=== PATIENT | female | born 1930 | race Caucasian/White ===

== ENCOUNTER 2017-06-12 21:08 | Inpatient (IN) | payer MEDICARE, OTHER ==
[~2017-06-12] VITALS: Ht 154.9 cm; Wt 54.5 kg
[2017-06-12] MEDS ORDERED: aspirin 81mg tab.chew PO ONE (21:20)
[2017-06-12] MEDS ORDERED: methylPREDNISolone sod succ 125mg/2ml vial IV ONE (21:30)
[2017-06-12] MEDS ORDERED: albuterol 2.5 MG/3 ML nebule CONTNEB PRN (21:30)
[2017-06-12 21:39] LABS: BASOPHILS # (AUTO) 0.1 X10'3 (0-0.2); BASOPHILS % (AUTO) 0.6 % (0-1); EOSINOPHILS # (AUTO) 0.6 X10'3 (0-0.9); EOSINOPHILS % (AUTO) 5.4 % (0-6); HEMATOCRIT 38.4 % (35.0-45.0); HEMOGLOBIN 12.7 g/dl (12.0-16.0); LYMPHOCYTES # (AUTO) 2.4 X10'3 (1.1-4.8); LYMPHOCYTES % (AUTO) 21.6 % (21-51); MEAN CORPUSCULAR HEMOGLOBIN 30.2 PG (27.0-31.0); MEAN CORPUSCULAR VOLUME 91.5 FL (78-98); MEAN PLATELET VOLUME 6.9 FL (7.4-10.4); MONOCYTES # (AUTO) 0.8 X10'3 (0-0.9); MONOCYTES % (AUTO) 7.2 % (2-12); NEUTROPHILS # (AUTO) 7.4 X10'3 (1.8-7.7); NEUTROPHILS % (AUTO) 65.2 % (42-75); PLATELET COUNT 264 X10'3 (140-440); RED CELL DISTRIBUTION WIDTH 15.8 % (11.5-14.5); WHITE BLOOD COUNT 11.4 X10'3 (4.5-11.0)
[2017-06-12 21:50] LABS: PARTIAL THROMBOPLASTIN TIME 28 SECONDS (22-32)
[2017-06-12 22:38] LABS: ALANINE AMINOTRANSFERASE 24 U/L (12-78); ALBUMIN 3.8 G/DL (3.4-5.0); ALBUMIN/GLOBULIN RATIO 1.1 (1.1-1.5); ALKALINE PHOSPHATASE 70 IU/L (46-116); ANION GAP 11 (8-16); ASPARTATE AMINO TRANSFERASE 22 U/L (10-37); BILIRUBIN,TOTAL 0.5 MG/DL (0.1-1.0); BLOOD UREA NITROGEN 20 MG/DL (7-18); BUN/CREATININE RATIO 20.8 (6.6-38.0); CALCIUM 9.3 MG/DL (8.5-10.1); CHLORIDE 104 MMOL/L (99-107); CREATININE 0.96 MG/DL (0.40-0.90); GLUCOSE 82 MG/DL (70-104); POTASSIUM 4.1 MMOL/L (3.5-5.1); SODIUM 145 MMOL/L (135-145); TOTAL PROTEIN 7.4 G/DL (6.4-8.2); eGFR 55 ML/MIN
[2017-06-12] MEDS ORDERED: levoFLOXACIN-Levaquin 500mg/D5 100 ML IV ONE (23:45)
[2017-06-12] MEDS ORDERED: GABA-532 PO (23:58)
[2017-06-12] MEDS ORDERED: ALB0.5UD IH (23:58)
[2017-06-12] MEDS ORDERED: TIOT18CA3 INH (23:58)
[2017-06-12] MEDS ORDERED: SIMV20TA5 PO (23:58)
[2017-06-12] MEDS ORDERED: POTA10TA10 PO (23:58)
[2017-06-12] MEDS ORDERED: CLOP75TA15 PO (23:58)
[2017-06-12] MEDS ORDERED: FURO-150 PO (23:58)
[2017-06-12] MEDS ORDERED: SYN0.088T PO (23:58)
[2017-06-12] MEDS ORDERED: TRAZ-143 PO (23:58)
[2017-06-12] MEDS ORDERED: ATEN-169 PO (23:58)
[2017-06-13] MEDS ORDERED: acetaminophen 325mg tablet PO PRN ×2 (00:45)
[2017-06-13] MEDS ORDERED: mag hydrox/Alum hydrox/simeth 30ml oral suspension PO PRN (00:45)
[2017-06-13] MEDS ORDERED: magnesium hydroxide 30ml (MOM) UD suspension PO PRN (00:45)
[2017-06-13] MEDS ORDERED: ondansetron/PF 4mg/2ml inj IV PRN (00:45)
[2017-06-13] MEDS ORDERED: traZODone 50mg tablet PO PRN (01:35)
[2017-06-13 02:00] VITALS: BP 176/75
[2017-06-13] MEDS: methylPREDNISolone sod succ 125mg/2ml vial IV SCH ×4 (02:05→20:48)
[2017-06-13 05:00] VITALS: BP 152/66
[2017-06-13] MEDS: enoxaparin 40mg/0.4ml syringe SQ SCH (07:34)
[2017-06-13] MEDS: lactobacillus rhamnosus 10,000 MMU CELLS/CAPSULE PO SCH ×2 (07:34→20:00)
[2017-06-13] MEDS: furosemide 20MG tablet PO SCH (07:34)
[2017-06-13] MEDS: levoTHYROXINE 88mcg tablet PO SCH (07:34)
[2017-06-13] MEDS: potassium chloride 10mEq ER tablet PO SCH (07:35)
[2017-06-13] MEDS: clopidogrel 75mg tablet PO SCH (07:35)
[2017-06-13] MEDS: atorvastatin 20mg tablet PO SCH (07:35)
[2017-06-13] MEDS: gabapentin 300mg capsule PO SCH ×2 (07:35→15:17)
[2017-06-13] MEDS: atenolol 50mg tablet PO SCH (07:35)
[2017-06-13 09:37] LABS: D-DIMER 1.08 MG/L FEU (0-0.50)
[2017-06-13 10:00] VITALS: BP 153/63
[2017-06-13] MEDS ORDERED: levoFLOXACIN 250mg tablet PO SCH (11:00)
[2017-06-13] MEDS ORDERED: guaiFENesin/codeine phos 10ml UD oral syrup PO PRN (13:40)
[2017-06-13] MEDS ORDERED: iohexol 300mg/ml 100ml inj. ONE (14:40)
[2017-06-13 18:00] VITALS: BP 152/75
[2017-06-13] MEDS: ipratropium/albuterol 3ml nebule NEB PRN (21:04)
[2017-06-13 22:00] VITALS: BP 131/56
[2017-06-14] MEDS: methylPREDNISolone sod succ 125mg/2ml vial IV SCH ×2 (02:10→07:51)
[2017-06-14] MEDS: gabapentin 300mg capsule PO SCH ×2 (02:10→07:49)
[2017-06-14 06:00] VITALS: BP 122/60
[2017-06-14 06:02] LABS: HEMATOCRIT 32.8 % (35.0-45.0); HEMOGLOBIN 10.9 g/dl (12.0-16.0); MEAN CORPUSCULAR HEMOGLOBIN 29.9 PG (27.0-31.0); MEAN CORPUSCULAR HGB CONC 33.1 % (33.0-36.5); MEAN CORPUSCULAR VOLUME 90.4 FL (78-98); MEAN PLATELET VOLUME 7.2 FL (7.4-10.4); PLATELET COUNT 238 X10'3 (140-440); RED BLOOD COUNT 3.63 X10'6 (4.20-5.60); RED CELL DISTRIBUTION WIDTH 15.5 % (11.5-14.5); WHITE BLOOD COUNT 7.7 X10'3 (4.5-11.0)
[2017-06-14 06:26] LABS: ALANINE AMINOTRANSFERASE 18 U/L (12-78); ALKALINE PHOSPHATASE 59 IU/L (46-116); ANION GAP 10 (8-16); ASPARTATE AMINO TRANSFERASE 21 U/L (10-37); BILIRUBIN,TOTAL 0.3 MG/DL (0.1-1.0); BLOOD UREA NITROGEN 24 MG/DL (7-18); BUN/CREATININE RATIO 26.4 (6.6-38.0); C-REACTIVE PROTEIN 2.28 MG/DL (0.0-0.5); CALCIUM 8.7 MG/DL (8.5-10.1); CHLORIDE 105 MMOL/L (99-107); CREATININE 0.91 MG/DL (0.40-0.90); GLUCOSE 144 MG/DL (70-104); MAGNESIUM 2.4 MG/DL (1.5-2.4); POTASSIUM 3.8 MMOL/L (3.5-5.1); SODIUM 145 MMOL/L (135-145); TOTAL PROTEIN 6.1 G/DL (6.4-8.2); eGFR 59 ML/MIN
[2017-06-14 07:34] LABS: LYMPHOCYTES % (MANUAL) 7 % (21-51); MONOCYTES % (MANUAL) 8 % (2-12); NEUTROPHILS % (MANUAL) 85 % (42-75); TOTAL CELLS COUNTED 100
[2017-06-14 07:35] LABS: PLATELET ESTIMATE NORMAL
[2017-06-14] MEDS: potassium chloride 10mEq ER tablet PO SCH (07:49)
[2017-06-14] MEDS: clopidogrel 75mg tablet PO SCH (07:49)
[2017-06-14] MEDS: levoTHYROXINE 88mcg tablet PO SCH (07:49)
[2017-06-14] MEDS: atenolol 50mg tablet PO SCH (07:49)
[2017-06-14] MEDS: furosemide 20MG tablet PO SCH (07:49)
[2017-06-14] MEDS: lactobacillus rhamnosus 10,000 MMU CELLS/CAPSULE PO SCH ×2 (07:50→20:50)
[2017-06-14] MEDS: atorvastatin 20mg tablet PO SCH (07:50)
[2017-06-14] MEDS: enoxaparin 40mg/0.4ml syringe SQ SCH (07:51)
[2017-06-14 10:00] VITALS: BP 131/47
[2017-06-14] MEDS ORDERED: pneumococcal 23-VAL P-sac vacc 25 mcg/0.5ml vial IMVAC ONE (10:00)
[2017-06-14] MEDS: predniSONE 20 mg tablet PO SCH (10:03)
[2017-06-14] MEDS: levoFLOXACIN 250mg tablet PO SCH (11:00)
[2017-06-14] MEDS: ipratropium/albuterol 3ml nebule NEB PRN ×2 (16:56→20:39)
[2017-06-14 18:00] VITALS: BP 127/66
[2017-06-14] MEDS: guaiFENesin ER 600mg tablet PO PRN (20:51)
[2017-06-14 22:00] VITALS: BP 137/51
[2017-06-15] MEDS: gabapentin 400mg capsule PO SCH ×2 (00:07→11:29)
[2017-06-15 02:10] VITALS: BP 164/63
[2017-06-15] MEDS ORDERED: MORPHINE 2MG in 2ml NS syringe IV ONE (02:20)
[2017-06-15] MEDS: benzonatate 100mg capsule PO PRN ×2 (02:48→20:00)
[2017-06-15 05:00] VITALS: BP 160/62
[2017-06-15 05:57] LABS: BASOPHILS % (AUTO) 0 % (0-1); EOSINOPHILS # (AUTO) 0.1 X10'3 (0-0.9); EOSINOPHILS % (AUTO) 1.1 % (0-6); HEMATOCRIT 32.9 % (35.0-45.0); LYMPHOCYTES # (AUTO) 1.1 X10'3 (1.1-4.8); LYMPHOCYTES % (AUTO) 12.3 % (21-51); MEAN CORPUSCULAR HEMOGLOBIN 30.2 PG (27.0-31.0); MEAN CORPUSCULAR HGB CONC 33.4 % (33.0-36.5); MEAN CORPUSCULAR VOLUME 90.4 FL (78-98); MEAN PLATELET VOLUME 7.3 FL (7.4-10.4); MONOCYTES % (AUTO) 11.6 % (2-12); NEUTROPHILS # (AUTO) 6.7 X10'3 (1.8-7.7); PLATELET COUNT 228 X10'3 (140-440); RED BLOOD COUNT 3.64 X10'6 (4.20-5.60); RED CELL DISTRIBUTION WIDTH 15.3 % (11.5-14.5)
[2017-06-15 06:02] LABS: ALBUMIN 2.8 G/DL (3.4-5.0); ANION GAP 5 (8-16); BLOOD UREA NITROGEN 28 MG/DL (7-18); BUN/CREATININE RATIO 25.7 (6.6-38.0); CALCIUM 8.5 MG/DL (8.5-10.1); CHLORIDE 105 MMOL/L (99-107); CREATININE 1.09 MG/DL (0.40-0.90); GLUCOSE 105 MG/DL (70-104); POTASSIUM 3.7 MMOL/L (3.5-5.1); SODIUM 142 MMOL/L (135-145); TOTAL CARBON DIOXIDE 31.9 MMOL/L (24-32); eGFR 48 ML/MIN
[2017-06-15] MEDS: furosemide 20MG tablet PO SCH (07:16)
[2017-06-15] MEDS: enoxaparin 40mg/0.4ml syringe SQ SCH (07:16)
[2017-06-15] MEDS: levoTHYROXINE 88mcg tablet PO SCH (07:16)
[2017-06-15] MEDS: lactobacillus rhamnosus 10,000 MMU CELLS/CAPSULE PO SCH ×2 (07:16→20:00)
[2017-06-15] MEDS: atenolol 50mg tablet PO SCH (07:16)
[2017-06-15] MEDS: predniSONE 20 mg tablet PO SCH (07:16)
[2017-06-15] MEDS: potassium chloride 10mEq ER tablet PO SCH (07:16)
[2017-06-15] MEDS: atorvastatin 20mg tablet PO SCH (07:16)
[2017-06-15] MEDS: clopidogrel 75mg tablet PO SCH (07:16)
[2017-06-15] MEDS ORDERED: HYDROcodone/acetaminophen 5mg/325mg tablet PO PRN ×2 (09:25)
[2017-06-15 10:00] VITALS: BP 127/55
[2017-06-15] MEDS: levoFLOXACIN 250mg tablet PO SCH (11:30)
[2017-06-15] MEDS: CefTRIAXone/D5W-Rocephin 1gm 50 ML IV SCH (14:38)
[2017-06-15 18:00] VITALS: BP 128/59
[2017-06-15] MEDS: guaiFENesin ER 600mg tablet PO PRN (20:00)
[2017-06-15 22:00] VITALS: BP 138/64
[2017-06-16 05:47] LABS: BASOPHILS % (AUTO) 0.2 % (0-1); EOSINOPHILS % (AUTO) 0.1 % (0-6); HEMATOCRIT 33.7 % (35.0-45.0); HEMOGLOBIN 11.3 g/dl (12.0-16.0); LYMPHOCYTES # (AUTO) 1.7 X10'3 (1.1-4.8); MEAN CORPUSCULAR HEMOGLOBIN 30.2 PG (27.0-31.0); MEAN CORPUSCULAR HGB CONC 33.5 % (33.0-36.5); MEAN PLATELET VOLUME 7.2 FL (7.4-10.4); MONOCYTES # (AUTO) 1.3 X10'3 (0-0.9); MONOCYTES % (AUTO) 12.7 % (2-12); NEUTROPHILS # (AUTO) 7.5 X10'3 (1.8-7.7); PLATELET COUNT 232 X10'3 (140-440); RED BLOOD COUNT 3.75 X10'6 (4.20-5.60); RED CELL DISTRIBUTION WIDTH 15.1 % (11.5-14.5); WHITE BLOOD COUNT 10.6 X10'3 (4.5-11.0)
[2017-06-16 06:00] VITALS: BP 153/67
[2017-06-16 06:05] LABS: ALBUMIN 2.5 G/DL (3.4-5.0); ANION GAP 6 (8-16); BLOOD UREA NITROGEN 28 MG/DL (7-18); BUN/CREATININE RATIO 27.2 (6.6-38.0); CHLORIDE 106 MMOL/L (99-107); CREATININE 1.03 MG/DL (0.40-0.90); GLUCOSE 92 MG/DL (70-104); POTASSIUM 3.4 MMOL/L (3.5-5.1); SODIUM 143 MMOL/L (135-145); TOTAL CARBON DIOXIDE 31.1 MMOL/L (24-32); eGFR 51 ML/MIN
[2017-06-16] MEDS ORDERED: potassium Cl 40MEQ/NS 500ml 500 ML IV PRN ×2 (07:20)
[2017-06-16] MEDS ORDERED: potassium Cl 20 mEq SR tablet PO PRN ×2 (07:20)
[2017-06-16] MEDS: enoxaparin 40mg/0.4ml syringe SQ SCH (08:00)
[2017-06-16] MEDS: levoTHYROXINE 88mcg tablet PO SCH (08:27)
[2017-06-16] MEDS: atorvastatin 20mg tablet PO SCH (08:27)
[2017-06-16] MEDS: clopidogrel 75mg tablet PO SCH (08:28)
[2017-06-16] MEDS: lactobacillus rhamnosus 10,000 MMU CELLS/CAPSULE PO SCH (08:28)
[2017-06-16] MEDS: atenolol 50mg tablet PO SCH (08:28)
[2017-06-16] MEDS: predniSONE 20 mg tablet PO SCH (08:28)
[2017-06-16] MEDS: CefTRIAXone/D5W-Rocephin 1gm 50 ML IV SCH (08:29)
[2017-06-16] MEDS: potassium chloride 10mEq ER tablet PO SCH (08:40)
[2017-06-16 10:00] VITALS: BP 125/74
[2017-06-16] MEDS: gabapentin 400mg capsule PO SCH ×2 (14:07)
== END 2017-06-16 16:30 | DRG 193 ==
LOC: ER 21:09 → ED HOLD 06-13 00:41 → ORTHO 4S 06-13 01:38
PROVIDERS: ADMIT Internal Medicine; ATTEND Internal Medicine
DX: J18.9 Pneumonia, unspecified organism (principal); J96.21 Acute and chronic respiratory failure with hypoxia; I69.354 Hemiplegia and hemiparesis following cerebral infarction affecting left non-dominant side; J44.0 Chronic obstructive pulmonary disease with (acute) lower respiratory infection; J44.1 Chronic obstructive pulmonary disease with (acute) exacerbation; E86.0 Dehydration; I10 Essential (primary) hypertension; E03.9 Hypothyroidism, unspecified; E78.5 Hyperlipidemia, unspecified; Z99.81 Dependence on supplemental oxygen; Z95.1 Presence of aortocoronary bypass graft; Z90.710 Acquired absence of both cervix and uterus; Z90.12 Acquired absence of left breast and nipple; Z90.49 Acquired absence of other specified parts of digestive tract; Z79.02 Long term (current) use of antithrombotics/antiplatelets; Z79.899 Other long term (current) drug therapy; Z88.0 Allergy status to penicillin; Z88.8 Allergy status to other drugs, medicaments and biological substances; Z88.1 Allergy status to other antibiotic agents; Z85.3 Personal history of malignant neoplasm of breast
CPT/HCPCS: 36415; 71045; 71260; 80048; 80053; 83735; 83880; 84484; 85025; 85379; 85610; 85730; 86140; 87070; 93005; 93306; 94640; 94644; 94667; 94668; 94760; 96374; 97110; 97116; 97161; 97530; 99291; J0696; J1650; J1956; J2274; J2405; J2930; J7030; J7512; Q9967

== ENCOUNTER 2017-07-13 13:58 | Emergency (ER) | payer MEDICARE, OTHER ==
[~2017-07-13] VITALS: Ht 154.9 cm; Wt 62.0 kg
[~2017-07-13 13:58] MED LIST: ALB0.5UD IH; ATEN-169 PO; CLOP75TA15 PO; FURO-150 PO; GABA-532 PO; POTA10TA10 PO; SIMV20TA5 PO; SYN0.088T PO; TIOT18CA3 INH; TRAZ-143 PO
[2017-07-13] MEDS ORDERED: albuterol 2.5 MG/3 ML nebule CONTNEB PRN (14:15)
[2017-07-13] MEDS ORDERED: ipratropium 0.5 MG/2.5ML nebule IH ONE (14:15)
[2017-07-13] MEDS ORDERED: methylPREDNISolone sod succ 125mg/2ml vial IV ONE (14:15)
[2017-07-13] MEDS ORDERED: magnesium 2GM in 50ml NS 50 ML IV ONE (14:15)
[2017-07-13] MEDS ORDERED: normal saline 1000ML IV soln IVB ONE (14:15)
[2017-07-13 14:35] LABS: BASOPHILS % (AUTO) 0.5 % (0-1); EOSINOPHILS # (AUTO) 0.4 X10'3 (0-0.9); EOSINOPHILS % (AUTO) 6.8 % (0-6); HEMATOCRIT 35.9 % (35.0-45.0); HEMOGLOBIN 11.8 g/dl (12.0-16.0); LYMPHOCYTES # (AUTO) 1.6 X10'3 (1.1-4.8); LYMPHOCYTES % (AUTO) 30.2 % (21-51); MEAN CORPUSCULAR HEMOGLOBIN 29.8 PG (27.0-31.0); MEAN CORPUSCULAR HGB CONC 32.9 % (33.0-36.5); MEAN CORPUSCULAR VOLUME 90.8 FL (78-98); MEAN PLATELET VOLUME 6.4 FL (7.4-10.4); MONOCYTES # (AUTO) 0.5 X10'3 (0-0.9); MONOCYTES % (AUTO) 9.1 % (2-12); NEUTROPHILS # (AUTO) 2.9 X10'3 (1.8-7.7); NEUTROPHILS % (AUTO) 53.4 % (42-75); PLATELET COUNT 300 X10'3 (140-440); RED BLOOD COUNT 3.95 X10'6 (4.20-5.60); RED CELL DISTRIBUTION WIDTH 15.6 % (11.5-14.5); WHITE BLOOD COUNT 5.4 X10'3 (4.5-11.0)
[2017-07-13 14:43] LABS: PROTHROMBIN TIME 10.4 SECONDS (9.0-12.0)
[2017-07-13 14:49] LABS: ALANINE AMINOTRANSFERASE 20 U/L (12-78); ALBUMIN 3.1 G/DL (3.4-5.0); ALBUMIN/GLOBULIN RATIO 0.9 (1.1-1.5); ALKALINE PHOSPHATASE 54 IU/L (46-116); ANION GAP 8 (8-16); ASPARTATE AMINO TRANSFERASE 21 U/L (10-37); BILIRUBIN,TOTAL 0.3 MG/DL (0.1-1.0); BLOOD UREA NITROGEN 11 MG/DL (7-18); BUN/CREATININE RATIO 10.7 (6.6-38.0); CALCIUM 8.8 MG/DL (8.5-10.1); CHLORIDE 105 MMOL/L (99-107); CREATININE 1.03 MG/DL (0.40-0.90); GLUCOSE 135 MG/DL (70-104); POTASSIUM 3.7 MMOL/L (3.5-5.1); SODIUM 146 MMOL/L (135-145); TOTAL CARBON DIOXIDE 33.5 MMOL/L (24-32); TOTAL PROTEIN 6.4 G/DL (6.4-8.2); eGFR 51 ML/MIN
[2017-07-13 14:55] LABS: MAGNESIUM 2.1 MG/DL (1.5-2.4)
[2017-07-13] MEDS ORDERED: PRED20TA PO (15:12)
[2017-07-13 15:55] VITALS: BP 151/84
== END 2017-07-13 15:59 | disposition home or self-care (01) ==
LOC: ER 13:58
DX: J44.1 Chronic obstructive pulmonary disease with (acute) exacerbation (principal); I10 Essential (primary) hypertension; Z88.0 Allergy status to penicillin; Z88.1 Allergy status to other antibiotic agents; Z87.891 Personal history of nicotine dependence
CPT/HCPCS: 36415; 71045; 80053; 83735; 83880; 84484; 85025; 85610; 93005; 94644; 94760; 96365; 96375; 99285; J2930; J3475; J7030; 94640

== ENCOUNTER 2017-08-16 10:46 | Inpatient (IN) | payer MEDICARE, OTHER ==
[~2017-08-16] VITALS: Ht 154.9 cm; Wt 57.8 kg
[2017-08-16] MEDS ORDERED: ipratropium/albuterol 3ml nebule NEB ONE (11:00)
[2017-08-16] MEDS ORDERED: azithromycin/NS 500mg/250ml 250 ML IV ONE (11:00)
[2017-08-16] MEDS ORDERED: CefTRIAXone 2gm/D5W 50ml 50 ML IV ONE (11:00)
[2017-08-16] MEDS ORDERED: methylPREDNISolone sod succ 125mg/2ml vial IV ONE ×2 (11:00→20:00)
[2017-08-16] MEDS ORDERED: normal saline 1000ML IV soln IV ONE (11:00)
[2017-08-16 12:30] LABS: BASOPHILS % (AUTO) 0.3 % (0-1); EOSINOPHILS # (AUTO) 0.6 X10'3 (0-0.9); EOSINOPHILS % (AUTO) 7.8 % (0-6); HEMATOCRIT 35.9 % (35.0-45.0); HEMOGLOBIN 11.5 g/dl (12.0-16.0); LYMPHOCYTES # (AUTO) 1.9 X10'3 (1.1-4.8); LYMPHOCYTES % (AUTO) 24.3 % (21-51); MEAN CORPUSCULAR HEMOGLOBIN 29.8 PG (27.0-31.0); MEAN CORPUSCULAR HGB CONC 32.1 % (33.0-36.5); MEAN CORPUSCULAR VOLUME 92.7 FL (78-98); MEAN PLATELET VOLUME 6.7 FL (7.4-10.4); MONOCYTES # (AUTO) 0.6 X10'3 (0-0.9); MONOCYTES % (AUTO) 7.8 % (2-12); NEUTROPHILS # (AUTO) 4.6 X10'3 (1.8-7.7); NEUTROPHILS % (AUTO) 59.8 % (42-75); PLATELET COUNT 239 X10'3 (140-440); RED BLOOD COUNT 3.87 X10'6 (4.20-5.60); RED CELL DISTRIBUTION WIDTH 16.4 % (11.5-14.5); WHITE BLOOD COUNT 7.7 X10'3 (4.5-11.0)
[2017-08-16 12:36] LABS: ALANINE AMINOTRANSFERASE 20 U/L (12-78); ALBUMIN 3.1 G/DL (3.4-5.0); ALKALINE PHOSPHATASE 66 IU/L (46-116); ANION GAP 6 (8-16); ASPARTATE AMINO TRANSFERASE 23 U/L (10-37); BILIRUBIN,TOTAL 0.4 MG/DL (0.1-1.0); BLOOD UREA NITROGEN 11 MG/DL (7-18); BUN/CREATININE RATIO 12.9 (6.6-38.0); CALCIUM 8.2 MG/DL (8.5-10.1); CHLORIDE 108 MMOL/L (99-107); CREATININE 0.85 MG/DL (0.40-0.90); GLUCOSE 130 MG/DL (70-104); POTASSIUM 3.7 MMOL/L (3.5-5.1); SODIUM 145 MMOL/L (135-145); TOTAL CARBON DIOXIDE 30.9 MMOL/L (24-32); TOTAL PROTEIN 6.2 G/DL (6.4-8.2); eGFR 63 ML/MIN
[2017-08-16] MEDS ORDERED: morphine 2 MG/ML inj. syringe IV ONE (12:40)
[2017-08-16] MEDS ORDERED: albuterol 2.5 MG/3 ML nebule NEB ONE (12:40)
[2017-08-16] MEDS ORDERED: LORazepam 2 mg/ml vial IV ONE ×2 (13:10→13:55)
[2017-08-16] MEDS ORDERED: LORazepam 2 mg/ml vial ONE (13:10)
[2017-08-16] MEDS ORDERED: MORPHINE 2MG in 2ml NS syringe ONE (13:17)
[2017-08-16 13:35] LABS: ABG BASE EXCESS -1.6 mmol/L (-2.0-3.0); ABG HCO3 25.5 mmol/L (22.0-26.0); ABG OXYGEN SATURATION 80.3 % (95-98); ABG PCO2 (T) 53.7 mmHg (32.0-45.0); ABG PH (T) 7.295 (7.350-7.450); ABG PO2 (T) 49.1 mmHg (83-108); ALLEN'S TEST Positive; FCOHb 0.7 % (0.5-1.5); FLOW 100 L/min; FMetHb 0.1 % (0.3-1.12); FO2Hb 79.7 % (94-100); PEEP 5 cm H2O; TOTAL HEMOGLOBIN 12.7 G/dl (12.0-16.0)
[2017-08-16 14:25] LABS: CLARITY,URINE CLEAR (Clear); COLOR,URINE STRAW (Yellow); GLUCOSE, URINE NEGATIVE (Neg); KETONES,URINE NEGATIVE (Neg); LEUKOCYTE ESTERASE ,URINE NEGATIVE (Neg); NITRITES, URINE NEGATIVE (Neg); OCCULT BLOOD,URINE TRACE-INTACT (Neg); PH,URINE 6.5 (4.8-8.0); PROTEIN,URINE NEGATIVE (Neg); UROBILINOGEN,URINE 0.2 E.U/dL (0.2-1.0)
[2017-08-16 14:26] LABS: UA COLLECTION TYPE FOLEY CATH
[2017-08-16] MEDS ORDERED: magnesium hydroxide 30ml (MOM) UD suspension PO PRN (15:00)
[2017-08-16] MEDS ORDERED: HYDROcodone/acetaminophen 10/325mg tab PO PRN (15:00)
[2017-08-16] MEDS ORDERED: magnesium Cl slow-release 64mg tablet PO PRN (15:00)
[2017-08-16] MEDS ORDERED: ondansetron/PF 4mg/2ml inj IV PRN (15:00)
[2017-08-16] MEDS ORDERED: bisacodyl 10mg suppository rectal RC PRN (15:00)
[2017-08-16] MEDS ORDERED: diphenhydrAMINE 25mg capsule PO PRN (15:00)
[2017-08-16] MEDS ORDERED: potassium Cl 40MEQ/NS 500ml 500 ML IV PRN ×2 (15:00)
[2017-08-16] MEDS ORDERED: magnesium 4gm in 100ml NS 100 ML IV PRN (15:00)
[2017-08-16] MEDS: K and/or MAG REPLACEMENT MC SCH (15:00)
[2017-08-16] MEDS ORDERED: mag hydrox/Alum hydrox/simeth 30ml oral suspension PO PRN (15:00)
[2017-08-16] MEDS ORDERED: potassium Cl 20 mEq SR tablet PO PRN ×2 (15:00)
[2017-08-16] MEDS ORDERED: magnesium 1gm/100ml D5W IVPB 50 ML IV PRN (15:00)
[2017-08-16] MEDS ORDERED: acetaminophen 325mg tablet PO PRN ×2 (15:00)
[2017-08-16] MEDS ORDERED: morphine 4 MG/ML inj SYRINge IV PRN (15:00)
[2017-08-16] MEDS ORDERED: HYDROcodone/acetaminophen 5mg/325mg tablet PO PRN (15:00)
[2017-08-16 15:27] LABS: BACTERIA,URINE NONE SEEN /HPF (Neg); RBC,URINE 0-2 /HPF (0-2); SQUAMOUS EPITHELIAL CELL,UR NONE SEEN /LPF (FEW); WBC,URINE 0-4 /HPF (0-4)
[2017-08-16 15:29] LABS: HEMOGLOBIN A1C 5.4 % (4.5-6.2)
[2017-08-16] MEDS: ipratropium/albuterol 3ml nebule NEB SCH ×3 (15:35→23:00)
[2017-08-16] MEDS ORDERED: iohexol 350MG/ML 100ml bottle IV ONE (15:36)
[2017-08-16] MEDS: normal saline 1000ml 1,000 ML IV SCH (15:37)
[2017-08-16] MEDS: vancomycin/NS 1 GM ADD-VANTAGE 250 ML X 1 DOSE IV SCH (15:37)
[2017-08-16] MEDS: enoxaparin 40mg/0.4ml syringe SUBCUT SCH (15:37)
[2017-08-16 17:12] VITALS: BP 146/68
[2017-08-16 19:00] VITALS: BP 134/69
[2017-08-16] MEDS: atorvastatin 20mg tablet PO SCH (20:22)
[2017-08-16] MEDS: traZODone 50mg tablet PO SCH (20:22)
[2017-08-16] MEDS ORDERED: temazepam 15mg capsule PO PRN (21:00)
[2017-08-16] MEDS ORDERED: albuterol 2.5 MG/3 ML nebule NEB STA (22:36)
[2017-08-16] MEDS: LORazepam 2 mg/ml vial IV PRN (22:43)
[2017-08-16 22:45] LABS: ABG BASE EXCESS -1.5 mmol/L (-2.0-3.0); ABG HCO3 28.2 mmol/L (22.0-26.0); ABG OXYGEN SATURATION 92.5 % (95-98); ABG PCO2 (T) 71.8 mmHg (32.0-45.0); ABG PH (T) 7.209 (7.350-7.450); ABG PO2 (T) 78.4 mmHg (83-108); ALLEN'S TEST Positive; FCOHb 0.3 % (0.5-1.5); FMetHb 0.5 % (0.3-1.12); FO2Hb 91.8 % (94-100); PATIENT TEMPERATURE 36.6; RESPIRATORY RATE 20 b/min; TOTAL HEMOGLOBIN 13.2 G/dl (12.0-16.0)
[2017-08-16] MEDS ORDERED: albuterol 2.5 MG/3 ML nebule CONTNEB PRN (22:55)
[2017-08-16] MEDS: morphine 2 MG/ML inj. syringe IV PRN (22:57)
[2017-08-16 23:00] VITALS: BP 130/91
[2017-08-16] MEDS: morphine 4 MG/ML inj SYRINge IV PRN (23:11)
[2017-08-16] MEDS: gabapentin 300mg capsule PO SCH (23:43)
[2017-08-17] VITALS (10 sets, daily range): BP systolic 103–152; BP diastolic 50–94
[2017-08-17] MEDS: ipratropium/albuterol 3ml nebule NEB SCH ×7 (02:34→23:24)
[2017-08-17] MEDS: morphine 2 MG/ML inj. syringe IV PRN ×4 (02:37→22:12)
[2017-08-17] MEDS: LORazepam 2 mg/ml vial IV PRN (03:44)
[2017-08-17 05:43] LABS: BASOPHILS % (AUTO) 0.2 % (0-1); EOSINOPHILS % (AUTO) 0 % (0-6); HEMATOCRIT 33.5 % (35.0-45.0); HEMOGLOBIN 10.9 g/dl (12.0-16.0); LYMPHOCYTES # (AUTO) 0.8 X10'3 (1.1-4.8); LYMPHOCYTES % (AUTO) 16.3 % (21-51); MEAN CORPUSCULAR HGB CONC 32.4 % (33.0-36.5); MEAN CORPUSCULAR VOLUME 92.5 FL (78-98); MEAN PLATELET VOLUME 6.9 FL (7.4-10.4); MONOCYTES # (AUTO) 0.2 X10'3 (0-0.9); MONOCYTES % (AUTO) 4.2 % (2-12); NEUTROPHILS # (AUTO) 3.7 X10'3 (1.8-7.7); NEUTROPHILS % (AUTO) 79.3 % (42-75); PLATELET COUNT 227 X10'3 (140-440); RED BLOOD COUNT 3.62 X10'6 (4.20-5.60); RED CELL DISTRIBUTION WIDTH 16.2 % (11.5-14.5); WHITE BLOOD COUNT 4.7 X10'3 (4.5-11.0)
[2017-08-17 06:11] LABS: ALANINE AMINOTRANSFERASE 28 U/L (12-78); ALKALINE PHOSPHATASE 68 IU/L (46-116); ANION GAP 6 (8-16); ASPARTATE AMINO TRANSFERASE 21 U/L (10-37); BILIRUBIN,TOTAL 0.3 MG/DL (0.1-1.0); BLOOD UREA NITROGEN 16 MG/DL (7-18); CALCIUM 8.4 MG/DL (8.5-10.1); CHLORIDE 108 MMOL/L (99-107); CHOL/HDL RATIO 2.7 (0.00-4.99); CHOLESTEROL 146 MG/DL (0-200); CREATININE 1.07 MG/DL (0.40-0.90); GLUCOSE 154 MG/DL (70-104); HDL CHOLESTEROL 55 MG/DL (35-60); LDL CHOLESTEROL 77 MG/DL (50-100); MAGNESIUM 2.1 MG/DL (1.5-2.4); PHOSPHORUS 3.9 MG/DL (2.3-4.5); POTASSIUM 4.1 MMOL/L (3.5-5.1); SODIUM 144 MMOL/L (135-145); TOTAL CARBON DIOXIDE 30.4 MMOL/L (24-32); TRIGLYCERIDES 64 MG/DL (20-135); eGFR 49 ML/MIN
[2017-08-17] MEDS: K and/or MAG REPLACEMENT MC SCH (08:00)
[2017-08-17] MEDS: atenolol 50mg tablet PO SCH (08:00)
[2017-08-17] MEDS: levoTHYROXINE 88mcg tablet PO SCH (08:45)
[2017-08-17] MEDS: gabapentin 300mg capsule PO SCH ×2 (08:45→15:20)
[2017-08-17] MEDS: furosemide 20MG tablet PO SCH (08:45)
[2017-08-17] MEDS: clopidogrel 75mg tablet PO SCH (08:45)
[2017-08-17] MEDS: enoxaparin 40mg/0.4ml syringe SUBCUT SCH (08:46)
[2017-08-17] MEDS: CefTRIAXone/D5W-Rocephin 1gm 50 ML IV SCH (08:46)
[2017-08-17] MEDS: azithromycin/NS 500mg/250ml 250 ML IV SCH (08:46)
[2017-08-17] MEDS ORDERED: iohexol 350MG/ML 100ml bottle IV ONE (09:57)
[2017-08-17] MEDS: normal saline 1000ml 1,000 ML IV SCH (10:58)
[2017-08-17] MEDS: vancomycin/NS 1 GM ADD-VANTAGE 250 ML X 1 DOSE IV SCH (15:18)
[2017-08-17 17:11] LABS: ABG BASE EXCESS 1.7 mmol/L (-2.0-3.0); ABG HCO3 27.3 mmol/L (22.0-26.0); ABG OXYGEN SATURATION 89.6 % (95-98); ABG PCO2 (T) 47.5 mmHg (32.0-45.0); ABG PH (T) 7.377 (7.350-7.450); ABG PO2 (T) 56.7 mmHg (83-108); FCOHb 0.3 % (0.5-1.5); FLOW 4 L/min; FMetHb 0.1 % (0.3-1.12); FO2Hb 89.2 % (94-100); TOTAL HEMOGLOBIN 10.7 G/dl (12.0-16.0)
[2017-08-17] MEDS: traZODone 50mg tablet PO SCH (21:51)
[2017-08-17] MEDS: lactobacillus rhamnosus 10,000 MMU CELLS/CAPSULE PO SCH (21:51)
[2017-08-17] MEDS: atorvastatin 20mg tablet PO SCH (21:51)
[2017-08-18 02:34] VITALS: BP 134/70
[2017-08-18] MEDS: ipratropium/albuterol 3ml nebule NEB SCH ×6 (03:11→23:07)
[2017-08-18 05:46] LABS: BASOPHILS % (AUTO) 0.2 % (0-1); EOSINOPHILS # (AUTO) 0.2 X10'3 (0-0.9); EOSINOPHILS % (AUTO) 2.5 % (0-6); HEMATOCRIT 30.6 % (35.0-45.0); HEMOGLOBIN 10.1 g/dl (12.0-16.0); LYMPHOCYTES # (AUTO) 1.5 X10'3 (1.1-4.8); LYMPHOCYTES % (AUTO) 20.1 % (21-51); MEAN CORPUSCULAR HEMOGLOBIN 30.5 PG (27.0-31.0); MEAN CORPUSCULAR VOLUME 92.3 FL (78-98); MEAN PLATELET VOLUME 6.9 FL (7.4-10.4); MONOCYTES # (AUTO) 0.7 X10'3 (0-0.9); MONOCYTES % (AUTO) 8.5 % (2-12); NEUTROPHILS # (AUTO) 5.3 X10'3 (1.8-7.7); NEUTROPHILS % (AUTO) 68.7 % (42-75); PLATELET COUNT 213 X10'3 (140-440); RED BLOOD COUNT 3.32 X10'6 (4.20-5.60); RED CELL DISTRIBUTION WIDTH 16.2 % (11.5-14.5); WHITE BLOOD COUNT 7.7 X10'3 (4.5-11.0)
[2017-08-18 05:58] LABS: ALANINE AMINOTRANSFERASE 24 U/L (12-78); ALBUMIN 2.8 G/DL (3.4-5.0); ALKALINE PHOSPHATASE 54 IU/L (46-116); ANION GAP 5 (8-16); ASPARTATE AMINO TRANSFERASE 17 U/L (10-37); BILIRUBIN,TOTAL 0.2 MG/DL (0.1-1.0); BLOOD UREA NITROGEN 15 MG/DL (7-18); BUN/CREATININE RATIO 15.6 (6.6-38.0); CALCIUM 8.2 MG/DL (8.5-10.1); CHLORIDE 107 MMOL/L (99-107); CREATININE 0.96 MG/DL (0.40-0.90); GLUCOSE 87 MG/DL (70-104); MAGNESIUM 1.9 MG/DL (1.5-2.4); POTASSIUM 3.5 MMOL/L (3.5-5.1); SODIUM 142 MMOL/L (135-145); TOTAL CARBON DIOXIDE 30.5 MMOL/L (24-32); TOTAL PROTEIN 5.5 G/DL (6.4-8.2); eGFR 55 ML/MIN
[2017-08-18 06:00] VITALS: BP 133/67
[2017-08-18] MEDS: normal saline 1000ml 1,000 ML IV SCH (06:58)
[2017-08-18] MEDS: lactobacillus rhamnosus 10,000 MMU CELLS/CAPSULE PO SCH ×2 (07:18→20:16)
[2017-08-18] MEDS: gabapentin 300mg capsule PO SCH ×4 (07:18→20:16)
[2017-08-18] MEDS: CefTRIAXone/D5W-Rocephin 1gm 50 ML IV SCH (07:19)
[2017-08-18] MEDS: clopidogrel 75mg tablet PO SCH (07:19)
[2017-08-18] MEDS: levoTHYROXINE 88mcg tablet PO SCH (07:19)
[2017-08-18] MEDS: furosemide 20MG tablet PO SCH (07:19)
[2017-08-18] MEDS: enoxaparin 40mg/0.4ml syringe SUBCUT SCH (07:27)
[2017-08-18] MEDS: azithromycin/NS 500mg/250ml 250 ML IV SCH (07:27)
[2017-08-18] MEDS: atenolol 50mg tablet PO SCH (07:41)
[2017-08-18] MEDS: K and/or MAG REPLACEMENT MC SCH (08:00)
[2017-08-18 11:00] VITALS: BP 148/57
[2017-08-18] MEDS: morphine 4 MG/ML inj SYRINge IV PRN (12:40)
[2017-08-18 15:00] VITALS: BP 143/65
[2017-08-18] MEDS: vancomycin/NS 1 GM ADD-VANTAGE 250 ML X 1 DOSE IV SCH (16:36)
[2017-08-18] MEDS: LORazepam 2 mg/ml vial IV PRN (17:23)
[2017-08-18 18:00] VITALS: BP 142/70
[2017-08-18] MEDS: traZODone 50mg tablet PO SCH (20:16)
[2017-08-18] MEDS: atorvastatin 20mg tablet PO SCH (20:16)
[2017-08-18] MEDS: guaiFENesin ER 600mg tablet PO SCH (20:17)
[2017-08-18 22:00] VITALS: BP 165/76
[2017-08-19 02:00] VITALS: BP 129/75
[2017-08-19] MEDS: ipratropium/albuterol 3ml nebule NEB SCH ×6 (03:07→22:43)
[2017-08-19 05:56] LABS: BASOPHILS % (AUTO) 0.3 % (0-1); EOSINOPHILS # (AUTO) 0.6 X10'3 (0-0.9); EOSINOPHILS % (AUTO) 7.3 % (0-6); HEMATOCRIT 32.9 % (35.0-45.0); HEMOGLOBIN 10.8 g/dl (12.0-16.0); LYMPHOCYTES # (AUTO) 1.6 X10'3 (1.1-4.8); LYMPHOCYTES % (AUTO) 20.2 % (21-51); MEAN CORPUSCULAR HEMOGLOBIN 30.1 PG (27.0-31.0); MEAN CORPUSCULAR HGB CONC 32.7 % (33.0-36.5); MEAN PLATELET VOLUME 6.9 FL (7.4-10.4); MONOCYTES # (AUTO) 0.7 X10'3 (0-0.9); MONOCYTES % (AUTO) 9.3 % (2-12); NEUTROPHILS # (AUTO) 4.9 X10'3 (1.8-7.7); NEUTROPHILS % (AUTO) 62.9 % (42-75); PLATELET COUNT 197 X10'3 (140-440); RED BLOOD COUNT 3.58 X10'6 (4.20-5.60); RED CELL DISTRIBUTION WIDTH 16.4 % (11.5-14.5); WHITE BLOOD COUNT 7.8 X10'3 (4.5-11.0)
[2017-08-19 06:00] VITALS: BP 161/74
[2017-08-19 06:21] LABS: ALANINE AMINOTRANSFERASE 28 U/L (12-78); ALBUMIN 2.9 G/DL (3.4-5.0); ALBUMIN/GLOBULIN RATIO 1.1 (1.1-1.5); ALKALINE PHOSPHATASE 62 IU/L (46-116); ANION GAP 6 (8-16); ASPARTATE AMINO TRANSFERASE 16 U/L (10-37); BILIRUBIN,TOTAL 0.5 MG/DL (0.1-1.0); BLOOD UREA NITROGEN 14 MG/DL (7-18); BUN/CREATININE RATIO 16.5 (6.6-38.0); CALCIUM 8.5 MG/DL (8.5-10.1); CHLORIDE 108 MMOL/L (99-107); CREATININE 0.85 MG/DL (0.40-0.90); GLUCOSE 84 MG/DL (70-104); MAGNESIUM 1.9 MG/DL (1.5-2.4); PHOSPHORUS 3.3 MG/DL (2.3-4.5); POTASSIUM 3.5 MMOL/L (3.5-5.1); SODIUM 144 MMOL/L (135-145); TOTAL CARBON DIOXIDE 30.3 MMOL/L (24-32); TOTAL PROTEIN 5.6 G/DL (6.4-8.2); eGFR 63 ML/MIN
[2017-08-19] MEDS: levoTHYROXINE 88mcg tablet PO SCH (07:29)
[2017-08-19] MEDS: CefTRIAXone/D5W-Rocephin 1gm 50 ML IV SCH (07:39)
[2017-08-19] MEDS: lactobacillus rhamnosus 10,000 MMU CELLS/CAPSULE PO SCH ×2 (07:58→19:36)
[2017-08-19] MEDS: furosemide 20MG tablet PO SCH (07:58)
[2017-08-19] MEDS: gabapentin 300mg capsule PO SCH ×3 (07:58→20:20)
[2017-08-19] MEDS: clopidogrel 75mg tablet PO SCH (07:58)
[2017-08-19] MEDS: atenolol 50mg tablet PO SCH (07:58)
[2017-08-19] MEDS: enoxaparin 40mg/0.4ml syringe SUBCUT SCH (07:59)
[2017-08-19] MEDS: azithromycin 250mg tablet PO SCH (07:59)
[2017-08-19] MEDS: K and/or MAG REPLACEMENT MC SCH (08:00)
[2017-08-19] MEDS: guaiFENesin ER 600mg tablet PO SCH ×2 (08:15→19:36)
[2017-08-19 11:00] VITALS: BP 184/86
[2017-08-19] MEDS: LORazepam 2 mg/ml vial IV PRN (11:22)
[2017-08-19] MEDS: methylPREDNISolone sod succ 125mg/2ml vial IV SCH ×2 (13:41→19:36)
[2017-08-19 15:00] VITALS: BP 164/70
[2017-08-19] MEDS ORDERED: VANCOMYCIN LEVEL IV NR (15:30)
[2017-08-19] MEDS: vancomycin/NS 1 GM ADD-VANTAGE 250 ML X 1 DOSE IV SCH (16:57)
[2017-08-19 18:00] VITALS: BP 188/83
[2017-08-19] MEDS ORDERED: cloNIDine 0.1 mg tablet PO ONE ×2 (19:10→23:40)
[2017-08-19] MEDS: atorvastatin 20mg tablet PO SCH (20:20)
[2017-08-19] MEDS: traZODone 50mg tablet PO SCH (20:20)
[2017-08-19 22:00] VITALS: BP 189/81
[2017-08-20] VITALS (7 sets, daily range): BP systolic 128–171; BP diastolic 66–80
[2017-08-20] MEDS: methylPREDNISolone sod succ 125mg/2ml vial IV SCH ×4 (02:04→21:11)
[2017-08-20] MEDS: ipratropium/albuterol 3ml nebule NEB SCH ×6 (02:46→22:58)
[2017-08-20 05:36] LABS: BASOPHILS % (AUTO) 0.2 % (0-1); EOSINOPHILS % (AUTO) 0.8 % (0-6); HEMATOCRIT 35.4 % (35.0-45.0); HEMOGLOBIN 11.6 g/dl (12.0-16.0); LYMPHOCYTES # (AUTO) 0.6 X10'3 (1.1-4.8); MEAN CORPUSCULAR HEMOGLOBIN 30.2 PG (27.0-31.0); MEAN CORPUSCULAR HGB CONC 32.9 % (33.0-36.5); MEAN CORPUSCULAR VOLUME 91.8 FL (78-98); MEAN PLATELET VOLUME 7.1 FL (7.4-10.4); MONOCYTES # (AUTO) 0.1 X10'3 (0-0.9); MONOCYTES % (AUTO) 1.3 % (2-12); NEUTROPHILS # (AUTO) 4.6 X10'3 (1.8-7.7); NEUTROPHILS % (AUTO) 86.7 % (42-75); PLATELET COUNT 205 X10'3 (140-440); RED BLOOD COUNT 3.85 X10'6 (4.20-5.60); WHITE BLOOD COUNT 5.4 X10'3 (4.5-11.0)
[2017-08-20 06:16] LABS: ALANINE AMINOTRANSFERASE 33 U/L (12-78); ALBUMIN 2.7 G/DL (3.4-5.0); ALBUMIN/GLOBULIN RATIO 0.9 (1.1-1.5); ALKALINE PHOSPHATASE 69 IU/L (46-116); ANION GAP 10 (8-16); ASPARTATE AMINO TRANSFERASE 24 U/L (10-37); BILIRUBIN,TOTAL 0.4 MG/DL (0.1-1.0); BLOOD UREA NITROGEN 18 MG/DL (7-18); BUN/CREATININE RATIO 22.2 (6.6-38.0); CALCIUM 8.8 MG/DL (8.5-10.1); CHLORIDE 105 MMOL/L (99-107); CREATININE 0.81 MG/DL (0.40-0.90); GLUCOSE 144 MG/DL (70-104); MAGNESIUM 1.9 MG/DL (1.5-2.4); POTASSIUM 3.8 MMOL/L (3.5-5.1); SODIUM 141 MMOL/L (135-145); TOTAL CARBON DIOXIDE 25.9 MMOL/L (24-32); TOTAL PROTEIN 5.8 G/DL (6.4-8.2); eGFR 67 ML/MIN
[2017-08-20] MEDS: K and/or MAG REPLACEMENT MC SCH (08:00)
[2017-08-20] MEDS: atenolol 50mg tablet PO SCH (08:00)
[2017-08-20] MEDS: guaiFENesin ER 600mg tablet PO SCH ×2 (08:01→21:07)
[2017-08-20] MEDS: clopidogrel 75mg tablet PO SCH (08:03)
[2017-08-20] MEDS: amLODIPine 5mg tablet PO SCH (08:03)
[2017-08-20] MEDS: gabapentin 300mg capsule PO SCH ×3 (08:03→21:07)
[2017-08-20] MEDS: furosemide 20MG tablet PO SCH (08:04)
[2017-08-20] MEDS: CefTRIAXone/D5W-Rocephin 1gm 50 ML IV SCH (08:04)
[2017-08-20] MEDS: levoTHYROXINE 88mcg tablet PO SCH (08:04)
[2017-08-20] MEDS: azithromycin 250mg tablet PO SCH (08:04)
[2017-08-20] MEDS: lactobacillus rhamnosus 10,000 MMU CELLS/CAPSULE PO SCH ×2 (08:04→21:07)
[2017-08-20] MEDS: enoxaparin 40mg/0.4ml syringe SUBCUT SCH (08:10)
[2017-08-20] MEDS: normal saline 1000ml 1,000 ML IV SCH (08:16)
[2017-08-20] MEDS: vancomycin inj 1,250 MG in normal saline 250ml IV soln 250 ML IV SCH (14:54)
[2017-08-20] MEDS: acetylcysteine 200 MG/ml 4ml vial INH SCH ×2 (19:14→20:00)
[2017-08-20] MEDS: traZODone 50mg tablet PO SCH (21:07)
[2017-08-20] MEDS: atorvastatin 20mg tablet PO SCH (21:07)
[2017-08-20] MEDS: morphine 4 MG/ML inj SYRINge IV PRN (21:10)
[2017-08-20] MEDS: HYDROcodone & chlorphen. 10-8mg/5ml oral susp. PO SCH (21:11)
[2017-08-21 02:00] VITALS: BP 180/84
[2017-08-21] MEDS: methylPREDNISolone sod succ 125mg/2ml vial IV SCH ×4 (02:11→20:09)
[2017-08-21] MEDS ORDERED: hydrALAZINE 20mg/ml inj. IV PRN (03:06)
[2017-08-21] MEDS: ipratropium/albuterol 3ml nebule NEB SCH ×6 (03:13→23:22)
[2017-08-21 05:14] LABS: BASOPHILS % (AUTO) 0 % (0-1); EOSINOPHILS # (AUTO) 0.1 X10'3 (0-0.9); EOSINOPHILS % (AUTO) 0.9 % (0-6); HEMATOCRIT 35.1 % (35.0-45.0); HEMOGLOBIN 11.6 g/dl (12.0-16.0); LYMPHOCYTES # (AUTO) 0.7 X10'3 (1.1-4.8); LYMPHOCYTES % (AUTO) 9.5 % (21-51); MEAN CORPUSCULAR HEMOGLOBIN 30.3 PG (27.0-31.0); MEAN CORPUSCULAR HGB CONC 33.1 % (33.0-36.5); MEAN CORPUSCULAR VOLUME 91.5 FL (78-98); MEAN PLATELET VOLUME 7.4 FL (7.4-10.4); MONOCYTES # (AUTO) 0.3 X10'3 (0-0.9); MONOCYTES % (AUTO) 3.5 % (2-12); NEUTROPHILS # (AUTO) 6.7 X10'3 (1.8-7.7); NEUTROPHILS % (AUTO) 86.1 % (42-75); PLATELET COUNT 222 X10'3 (140-440); RED BLOOD COUNT 3.84 X10'6 (4.20-5.60); RED CELL DISTRIBUTION WIDTH 16.4 % (11.5-14.5); WHITE BLOOD COUNT 7.8 X10'3 (4.5-11.0)
[2017-08-21 05:34] LABS: ALANINE AMINOTRANSFERASE 38 U/L (12-78); ALKALINE PHOSPHATASE 63 IU/L (46-116); ANION GAP 8 (8-16); ASPARTATE AMINO TRANSFERASE 21 U/L (10-37); BILIRUBIN,TOTAL 0.3 MG/DL (0.1-1.0); BLOOD UREA NITROGEN 23 MG/DL (7-18); BUN/CREATININE RATIO 26.4 (6.6-38.0); CALCIUM 8.8 MG/DL (8.5-10.1); CHLORIDE 105 MMOL/L (99-107); CREATININE 0.87 MG/DL (0.40-0.90); GLUCOSE 143 MG/DL (70-104); MAGNESIUM 2.2 MG/DL (1.5-2.4); POTASSIUM 3.3 MMOL/L (3.5-5.1); SODIUM 141 MMOL/L (135-145); TOTAL CARBON DIOXIDE 28.1 MMOL/L (24-32); TOTAL PROTEIN 6.1 G/DL (6.4-8.2); eGFR 62 ML/MIN
[2017-08-21 07:00] VITALS: BP 163/80
[2017-08-21] MEDS: acetylcysteine 200 MG/ml 4ml vial INH SCH ×2 (07:03→20:00)
[2017-08-21] MEDS ORDERED: magnesium Cl slow-release 64mg tablet PO PRN (07:10)
[2017-08-21] MEDS ORDERED: potassium Cl 40MEQ/NS 500ml 500 ML IV PRN ×2 (07:10)
[2017-08-21] MEDS ORDERED: potassium Cl 20 mEq SR tablet PO PRN (07:10)
[2017-08-21] MEDS ORDERED: magnesium 1gm/100ml D5W IVPB 100 ML IV PRN (07:10)
[2017-08-21] MEDS ORDERED: magnesium 4gm in 100ml NS 100 ML IV PRN (07:10)
[2017-08-21] MEDS: amLODIPine 5mg tablet PO SCH (08:00)
[2017-08-21] MEDS ORDERED: hydrALAZINE 20mg/ml inj. IV SCH (08:00)
[2017-08-21] MEDS: atenolol 50mg tablet PO SCH (08:00)
[2017-08-21] MEDS: K and/or MAG REPLACEMENT MC SCH (08:00)
[2017-08-21] MEDS: levoTHYROXINE 88mcg tablet PO SCH (08:22)
[2017-08-21] MEDS: CefTRIAXone/D5W-Rocephin 1gm 50 ML IV SCH (08:22)
[2017-08-21] MEDS: clopidogrel 75mg tablet PO SCH (08:23)
[2017-08-21] MEDS: lactobacillus rhamnosus 10,000 MMU CELLS/CAPSULE PO SCH ×2 (08:23→20:12)
[2017-08-21] MEDS: furosemide 20MG tablet PO SCH (08:23)
[2017-08-21] MEDS: gabapentin 300mg capsule PO SCH ×3 (08:23→20:09)
[2017-08-21] MEDS: guaiFENesin ER 600mg tablet PO SCH ×2 (08:23→20:09)
[2017-08-21] MEDS: azithromycin 250mg tablet PO SCH (08:24)
[2017-08-21] MEDS: HYDROcodone & chlorphen. 10-8mg/5ml oral susp. PO SCH ×2 (08:24→20:09)
[2017-08-21] MEDS: enoxaparin 40mg/0.4ml syringe SUBCUT SCH (08:25)
[2017-08-21 11:21] VITALS: BP 143/71
[2017-08-21] MEDS: vancomycin inj 1,250 MG in normal saline 250ml IV soln 250 ML IV SCH (13:24)
[2017-08-21 15:00] VITALS: BP 131/50
[2017-08-21] MEDS: potassium Cl 20 mEq SR tablet PO PRN ×2 (15:05→20:23)
[2017-08-21 19:00] VITALS: BP 176/77
[2017-08-21] MEDS: atorvastatin 20mg tablet PO SCH (20:09)
[2017-08-21] MEDS: traZODone 50mg tablet PO SCH (20:09)
[2017-08-21 23:00] VITALS: BP 145/75
[2017-08-22] MEDS: methylPREDNISolone sod succ 125mg/2ml vial IV SCH ×4 (01:58→20:28)
[2017-08-22] MEDS: ipratropium/albuterol 3ml nebule NEB SCH ×6 (02:54→23:20)
[2017-08-22 03:00] VITALS: BP 169/70
[2017-08-22 06:00] VITALS: BP 163/73
[2017-08-22] MEDS: normal saline 1000ml 1,000 ML IV SCH (06:58)
[2017-08-22 07:33] LABS: BASOPHILS % (AUTO) 0 % (0-1); EOSINOPHILS % (AUTO) 0.6 % (0-6); HEMATOCRIT 37.1 % (35.0-45.0); HEMOGLOBIN 12.3 g/dl (12.0-16.0); LYMPHOCYTES # (AUTO) 0.6 X10'3 (1.1-4.8); MEAN CORPUSCULAR HEMOGLOBIN 30.4 PG (27.0-31.0); MEAN CORPUSCULAR HGB CONC 33.2 % (33.0-36.5); MEAN CORPUSCULAR VOLUME 91.7 FL (78-98); MEAN PLATELET VOLUME 7.5 FL (7.4-10.4); MONOCYTES # (AUTO) 0.4 X10'3 (0-0.9); MONOCYTES % (AUTO) 5.7 % (2-12); NEUTROPHILS # (AUTO) 6.6 X10'3 (1.8-7.7); NEUTROPHILS % (AUTO) 85.7 % (42-75); PLATELET COUNT 242 X10'3 (140-440); RED BLOOD COUNT 4.04 X10'6 (4.20-5.60); RED CELL DISTRIBUTION WIDTH 16.4 % (11.5-14.5); WHITE BLOOD COUNT 7.7 X10'3 (4.5-11.0)
[2017-08-22 07:50] LABS: ALANINE AMINOTRANSFERASE 35 U/L (12-78); ALBUMIN 3.2 G/DL (3.4-5.0); ALKALINE PHOSPHATASE 55 IU/L (46-116); ANION GAP 9 (8-16); ASPARTATE AMINO TRANSFERASE 19 U/L (10-37); BILIRUBIN,TOTAL 0.3 MG/DL (0.1-1.0); BLOOD UREA NITROGEN 27 MG/DL (7-18); BUN/CREATININE RATIO 25.7 (6.6-38.0); CALCIUM 8.7 MG/DL (8.5-10.1); CHLORIDE 106 MMOL/L (99-107); CREATININE 1.05 MG/DL (0.40-0.90); GLUCOSE 134 MG/DL (70-104); MAGNESIUM 2.4 MG/DL (1.5-2.4); PHOSPHORUS 3.6 MG/DL (2.3-4.5); POTASSIUM 4.1 MMOL/L (3.5-5.1); SODIUM 144 MMOL/L (135-145); TOTAL CARBON DIOXIDE 28.6 MMOL/L (24-32); TOTAL PROTEIN 6.3 G/DL (6.4-8.2); eGFR 50 ML/MIN
[2017-08-22] MEDS: levoTHYROXINE 88mcg tablet PO SCH (07:53)
[2017-08-22] MEDS: clopidogrel 75mg tablet PO SCH (07:53)
[2017-08-22] MEDS: amLODIPine 5mg tablet PO SCH (07:53)
[2017-08-22] MEDS: guaiFENesin ER 600mg tablet PO SCH ×2 (07:53→20:29)
[2017-08-22] MEDS: CefTRIAXone/D5W-Rocephin 1gm 50 ML IV SCH (07:54)
[2017-08-22] MEDS: azithromycin 250mg tablet PO SCH (07:54)
[2017-08-22] MEDS: furosemide 20MG tablet PO SCH (07:54)
[2017-08-22] MEDS: enoxaparin 40mg/0.4ml syringe SUBCUT SCH (07:54)
[2017-08-22] MEDS: gabapentin 300mg capsule PO SCH ×3 (07:55→20:28)
[2017-08-22] MEDS: atenolol 50mg tablet PO SCH (07:55)
[2017-08-22] MEDS: lactobacillus rhamnosus 10,000 MMU CELLS/CAPSULE PO SCH ×2 (07:55→20:29)
[2017-08-22] MEDS: HYDROcodone & chlorphen. 10-8mg/5ml oral susp. PO SCH ×2 (07:55→20:28)
[2017-08-22] MEDS: acetylcysteine 200 MG/ml 4ml vial INH SCH ×2 (08:00→19:27)
[2017-08-22] MEDS: K and/or MAG REPLACEMENT MC SCH (08:00)
[2017-08-22 11:00] VITALS: BP 143/65
[2017-08-22] MEDS: vancomycin inj 1,250 MG in normal saline 250ml IV soln 250 ML IV SCH (13:16)
[2017-08-22 15:00] VITALS: BP 166/59
[2017-08-22 19:00] VITALS: BP 161/72
[2017-08-22] MEDS: traZODone 50mg tablet PO SCH (20:29)
[2017-08-22] MEDS: atorvastatin 20mg tablet PO SCH (20:29)
[2017-08-22 23:00] VITALS: BP 157/72
[2017-08-23] MEDS: methylPREDNISolone sod succ 125mg/2ml vial IV SCH ×2 (02:11→07:35)
[2017-08-23 03:00] VITALS: BP 122/48
[2017-08-23] MEDS: ipratropium/albuterol 3ml nebule NEB SCH ×2 (03:36→10:38)
[2017-08-23 06:00] VITALS: BP 176/77
[2017-08-23 06:37] LABS: ALANINE AMINOTRANSFERASE 31 U/L (12-78); ALKALINE PHOSPHATASE 52 IU/L (46-116); ANION GAP 10 (8-16); ASPARTATE AMINO TRANSFERASE 18 U/L (10-37); BILIRUBIN,TOTAL 0.3 MG/DL (0.1-1.0); BLOOD UREA NITROGEN 27 MG/DL (7-18); BUN/CREATININE RATIO 32.1 (6.6-38.0); CALCIUM 8.5 MG/DL (8.5-10.1); CHLORIDE 104 MMOL/L (99-107); CREATININE 0.84 MG/DL (0.40-0.90); GLUCOSE 128 MG/DL (70-104); MAGNESIUM 2.4 MG/DL (1.5-2.4); PHOSPHORUS 3.8 MG/DL (2.3-4.5); SODIUM 140 MMOL/L (135-145); TOTAL CARBON DIOXIDE 25.8 MMOL/L (24-32); TOTAL PROTEIN 5.9 G/DL (6.4-8.2); eGFR 64 ML/MIN
[2017-08-23] MEDS: amLODIPine 5mg tablet PO SCH (07:30)
[2017-08-23] MEDS: furosemide 20MG tablet PO SCH (07:31)
[2017-08-23] MEDS: clopidogrel 75mg tablet PO SCH (07:31)
[2017-08-23] MEDS: atenolol 50mg tablet PO SCH (07:31)
[2017-08-23] MEDS: lactobacillus rhamnosus 10,000 MMU CELLS/CAPSULE PO SCH (07:31)
[2017-08-23] MEDS: gabapentin 300mg capsule PO SCH (07:31)
[2017-08-23] MEDS: levoTHYROXINE 88mcg tablet PO SCH (07:31)
[2017-08-23] MEDS: guaiFENesin ER 600mg tablet PO SCH (07:31)
[2017-08-23] MEDS: azithromycin 250mg tablet PO SCH (07:31)
[2017-08-23] MEDS: enoxaparin 40mg/0.4ml syringe SUBCUT SCH (07:35)
[2017-08-23] MEDS: HYDROcodone & chlorphen. 10-8mg/5ml oral susp. PO SCH (07:35)
[2017-08-23] MEDS: acetylcysteine 200 MG/ml 4ml vial INH SCH (07:46)
[2017-08-23] MEDS: CefTRIAXone/D5W-Rocephin 1gm 50 ML IV SCH (07:53)
[2017-08-23] MEDS: K and/or MAG REPLACEMENT MC SCH (08:00)
[2017-08-23 08:24] LABS: BASOPHILS % (AUTO) 0.1 % (0-1); EOSINOPHILS % (AUTO) 0.6 % (0-6); HEMOGLOBIN 11.6 g/dl (12.0-16.0); LYMPHOCYTES # (AUTO) 0.5 X10'3 (1.1-4.8); LYMPHOCYTES % (AUTO) 9.3 % (21-51); MEAN CORPUSCULAR HEMOGLOBIN 30.3 PG (27.0-31.0); MEAN CORPUSCULAR HGB CONC 33.2 % (33.0-36.5); MEAN CORPUSCULAR VOLUME 91.4 FL (78-98); MEAN PLATELET VOLUME 7.4 FL (7.4-10.4); MONOCYTES # (AUTO) 0.4 X10'3 (0-0.9); MONOCYTES % (AUTO) 6.9 % (2-12); NEUTROPHILS # (AUTO) 4.8 X10'3 (1.8-7.7); NEUTROPHILS % (AUTO) 83.1 % (42-75); PLATELET COUNT 246 X10'3 (140-440); RED BLOOD COUNT 3.83 X10'6 (4.20-5.60); RED CELL DISTRIBUTION WIDTH 16.5 % (11.5-14.5); WHITE BLOOD COUNT 5.8 X10'3 (4.5-11.0)
[2017-08-23 11:00] VITALS: BP 124/61
[2017-08-23] MEDS ORDERED: VANCOMYCIN LEVEL IV ONE (13:30)
== END 2017-08-23 13:20 | DRG 177 ==
LOC: ER 10:47 → ED HOLD 14:58 → EDBEDREQ 16:10 → PCU 3S 16:45
PROVIDERS: ADMIT Family Medicine; ATTEND Family Medicine
PROC: 5A09357 Assistance with Respiratory Ventilation, Less than 24 Consecutive Hours, Continuous Positive Airway Pressure (ICD-10-PCS; principal; 2017-08-16)
PROC: 5A09357 Assistance with Respiratory Ventilation, Less than 24 Consecutive Hours, Continuous Positive Airway Pressure (ICD-10-PCS; 2017-08-17)
PROC: B3201ZZ Computerized Tomography (CT Scan) of Thoracic Aorta using Low Osmolar Contrast (ICD-10-PCS; 2017-08-17)
PROC: 5A09357 Assistance with Respiratory Ventilation, Less than 24 Consecutive Hours, Continuous Positive Airway Pressure (ICD-10-PCS; 2017-08-18)
PROC: 5A09357 Assistance with Respiratory Ventilation, Less than 24 Consecutive Hours, Continuous Positive Airway Pressure (ICD-10-PCS; 2017-08-19)
PROC: 5A09357 Assistance with Respiratory Ventilation, Less than 24 Consecutive Hours, Continuous Positive Airway Pressure (ICD-10-PCS; 2017-08-22)
PROC: 5A09357 Assistance with Respiratory Ventilation, Less than 24 Consecutive Hours, Continuous Positive Airway Pressure (ICD-10-PCS; 2017-08-23)
DX: J15.6 Pneumonia due to other Gram-negative bacteria (principal); J96.21 Acute and chronic respiratory failure with hypoxia; J44.1 Chronic obstructive pulmonary disease with (acute) exacerbation; E87.2 Acidosis; J44.0 Chronic obstructive pulmonary disease with (acute) lower respiratory infection; J98.11 Atelectasis; I69.954 Hemiplegia and hemiparesis following unspecified cerebrovascular disease affecting left non-dominant side; J15.9 Unspecified bacterial pneumonia; D64.9 Anemia, unspecified; E03.9 Hypothyroidism, unspecified; E78.5 Hyperlipidemia, unspecified; F41.9 Anxiety disorder, unspecified; R00.0 Tachycardia, unspecified; E87.6 Hypokalemia; I10 Essential (primary) hypertension; Z66 Do not resuscitate; Z90.12 Acquired absence of left breast and nipple; Z90.49 Acquired absence of other specified parts of digestive tract; Z90.710 Acquired absence of both cervix and uterus; Z99.81 Dependence on supplemental oxygen; Z88.0 Allergy status to penicillin; Z88.1 Allergy status to other antibiotic agents; Z88.8 Allergy status to other drugs, medicaments and biological substances; Z79.899 Other long term (current) drug therapy; Z79.02 Long term (current) use of antithrombotics/antiplatelets; Z85.3 Personal history of malignant neoplasm of breast; Z87.891 Personal history of nicotine dependence; Z80.1 Family history of malignant neoplasm of trachea, bronchus and lung; Z80.6 Family history of leukemia
CPT/HCPCS: 36415; 36600; 71045; 71275; 80053; 80061; 80202; 81001; 82803; 83036; 83605; 83735; 84100; 84145; 84443; 84484; 85018; 85025; 87040; 87070; 93005; 94640; 94660; 94667; 94760; 96365; 96366; 96368; 96375; 97110; 97116; 97162; 97530; 97535; 99291; A4315; J0360; J0456; J0696; J1650; J2060; J2270; J2274; J2930; J3370; J7030; Q9967

== ENCOUNTER 2017-10-12 08:31 | Emergency (ER) | payer MEDICARE, OTHER ==
[~2017-10-12] VITALS: Ht 157.5 cm; Wt 52.3 kg
[~2017-10-12 08:31] MED LIST changes: -TRAZ-143 PO; +TRAZ-218 PO
[2017-10-12] MEDS ORDERED: methylPREDNISolone sod succ 125mg/2ml vial IV ONE (08:35)
[2017-10-12] MEDS ORDERED: ipratropium/albuterol 3ml nebule NEB ONE (08:35)
[2017-10-12 09:31] LABS: BASOPHILS # (AUTO) 0.1 X10'3 (0-0.2); BASOPHILS % (AUTO) 0.5 % (0-1); EOSINOPHILS # (AUTO) 0.1 X10'3 (0-0.9); EOSINOPHILS % (AUTO) 0.3 % (0-6); HEMATOCRIT 38.5 % (35.0-45.0); HEMOGLOBIN 12.9 g/dl (12.0-16.0); LYMPHOCYTES # (AUTO) 2.8 X10'3 (1.1-4.8); LYMPHOCYTES % (AUTO) 12.7 % (21-51); MEAN CORPUSCULAR HEMOGLOBIN 30.9 PG (27.0-31.0); MEAN CORPUSCULAR HGB CONC 33.6 % (33.0-36.5); MEAN PLATELET VOLUME 6.9 FL (7.4-10.4); MONOCYTES # (AUTO) 1.4 X10'3 (0-0.9); MONOCYTES % (AUTO) 6.4 % (2-12); NEUTROPHILS # (AUTO) 17.5 X10'3 (1.8-7.7); NEUTROPHILS % (AUTO) 80.1 % (42-75); PLATELET COUNT 305 X10'3 (140-440); RED BLOOD COUNT 4.19 X10'6 (4.20-5.60); RED CELL DISTRIBUTION WIDTH 16.7 % (11.5-14.5); WHITE BLOOD COUNT 21.9 X10'3 (4.5-11.0)
[2017-10-12 09:40] LABS: INR 1.1 INR; PARTIAL THROMBOPLASTIN TIME 28 SECONDS (22-32); PROTHROMBIN TIME 11.1 SECONDS (9.0-12.0)
[2017-10-12 09:49] LABS: ALANINE AMINOTRANSFERASE 18 U/L (12-78); ALBUMIN/GLOBULIN RATIO 0.9 (1.1-1.5); ALKALINE PHOSPHATASE 70 IU/L (46-116); ANION GAP 6 (8-16); ASPARTATE AMINO TRANSFERASE 14 U/L (10-37); BILIRUBIN,TOTAL 0.9 MG/DL (0.1-1.0); BLOOD UREA NITROGEN 11 MG/DL (7-18); BUN/CREATININE RATIO 11.1 (6.6-38.0); CALCIUM 8.5 MG/DL (8.5-10.1); CHLORIDE 102 MMOL/L (99-107); CREATININE 0.99 MG/DL (0.40-0.90); GLUCOSE 112 MG/DL (70-104); POTASSIUM 3.3 MMOL/L (3.5-5.1); SODIUM 139 MMOL/L (135-145); TOTAL CARBON DIOXIDE 31.4 MMOL/L (24-32); TOTAL PROTEIN 6.4 G/DL (6.4-8.2); eGFR 53 ML/MIN
[2017-10-12] MEDS ORDERED: PRED10TA23 PO (11:46)
[2017-10-12] MEDS ORDERED: CIPR-260 PO (11:46)
[2017-10-12 12:59] VITALS: BP 115/89
== END 2017-10-12 13:00 | disposition home or self-care (01) ==
LOC: ER 08:32
DX: J45.901 Unspecified asthma with (acute) exacerbation (principal); I10 Essential (primary) hypertension; J44.9 Chronic obstructive pulmonary disease, unspecified; Z88.0 Allergy status to penicillin; Z88.1 Allergy status to other antibiotic agents; Z88.8 Allergy status to other drugs, medicaments and biological substances; Z79.899 Other long term (current) drug therapy
CPT/HCPCS: 36415; 71045; 80053; 83605; 83880; 84484; 85025; 85610; 85730; 87040; 93005; 94640; 94760; 96374; 99285; J2930

== ENCOUNTER 2017-12-26 14:00 | Emergency (ER) | payer MEDICARE, OTHER ==
[~2017-12-26] VITALS: Ht 152.4 cm; Wt 60.0 kg
[~2017-12-26 14:00] MED LIST changes: +CIPR-260 PO
[2017-12-26] MEDS ORDERED: ipratropium/albuterol 3ml nebule NEB ONE (14:20)
[2017-12-26 14:52] LABS: BASOPHILS % (AUTO) 0.3 % (0-1); EOSINOPHILS # (AUTO) 0.4 X10'3 (0-0.9); EOSINOPHILS % (AUTO) 4.4 % (0-6); HEMATOCRIT 35.1 % (35.0-45.0); HEMOGLOBIN 11.4 g/dl (12.0-16.0); LYMPHOCYTES # (AUTO) 2.1 X10'3 (1.1-4.8); LYMPHOCYTES % (AUTO) 24.3 % (21-51); MEAN CORPUSCULAR HEMOGLOBIN 30.3 PG (27.0-31.0); MEAN CORPUSCULAR HGB CONC 32.4 % (33.0-36.5); MEAN CORPUSCULAR VOLUME 93.5 FL (78-98); MEAN PLATELET VOLUME 6.6 FL (7.4-10.4); MONOCYTES # (AUTO) 0.7 X10'3 (0-0.9); MONOCYTES % (AUTO) 7.7 % (2-12); NEUTROPHILS # (AUTO) 5.4 X10'3 (1.8-7.7); NEUTROPHILS % (AUTO) 63.3 % (42-75); PLATELET COUNT 261 X10'3 (140-440); RED BLOOD COUNT 3.76 X10'6 (4.20-5.60); RED CELL DISTRIBUTION WIDTH 16.5 % (11.5-14.5); WHITE BLOOD COUNT 8.5 X10'3 (4.5-11.0)
[2017-12-26 15:05] VITALS: BP 124/68
[2017-12-26 15:07] LABS: ALANINE AMINOTRANSFERASE 24 U/L (12-78); ALBUMIN 3.3 G/DL (3.4-5.0); ALBUMIN/GLOBULIN RATIO 1.1 (1.1-1.5); ALKALINE PHOSPHATASE 53 IU/L (46-116); ANION GAP 4 (8-16); ASPARTATE AMINO TRANSFERASE 21 U/L (10-37); BILIRUBIN,TOTAL 0.3 MG/DL (0.1-1.0); BLOOD UREA NITROGEN 19 MG/DL (7-18); BUN/CREATININE RATIO 21.1 (6.6-38.0); CALCIUM 8.5 MG/DL (8.5-10.1); CHLORIDE 102 MMOL/L (99-107); GLUCOSE 115 MG/DL (70-104); POTASSIUM 3.6 MMOL/L (3.5-5.1); SODIUM 141 MMOL/L (135-145); TOTAL CARBON DIOXIDE 35.1 MMOL/L (24-32); TOTAL PROTEIN 6.2 G/DL (6.4-8.2); eGFR 59 ML/MIN
[2017-12-26] MEDS ORDERED: methylPREDNISolone sod succ 125mg/2ml vial IV ONE (15:25)
[2017-12-26] MEDS ORDERED: PRED2.5T4 PO (15:41)
== END 2017-12-26 16:11 | disposition home or self-care (01) ==
LOC: ER 14:00
DX: J44.1 Chronic obstructive pulmonary disease with (acute) exacerbation (principal); I11.0 Hypertensive heart disease with heart failure; I50.9 Heart failure, unspecified; Z88.0 Allergy status to penicillin; Z88.1 Allergy status to other antibiotic agents; Z88.4 Allergy status to anesthetic agent; Z79.899 Other long term (current) drug therapy; Z86.73 Personal history of transient ischemic attack (TIA), and cerebral infarction without residual deficits
CPT/HCPCS: 36415; 71045; 80053; 85025; 93005; 94640; 96374; 99285; J2930

== ENCOUNTER 2018-12-21 18:58 | Inpatient (IN) | payer MEDICARE, OTHER ==
[~2018-12-21] VITALS: Ht 154.9 cm; Wt 61.4 kg
[~2018-12-21 18:58] MED LIST changes: +BUDE10.2 INH; +CARB30DR12 OP; -CIPR-260 PO; +DET2LAC PO; +GUAI1TBM19 PO; +OXYGEN; +SIMV-42 PO; -SIMV20TA5 PO; -TRAZ-218 PO; +TRAZ-251 PO; +VIT1CAPS9 PO; +WOMEN S MVI PO; +[UNRECOGNIZED DRUG - CODE] PO
[2018-12-21] MEDS ORDERED: methylPREDNISolone sod succ 125mg/2ml vial IV ONE (19:10)
[2018-12-21] MEDS ORDERED: albuterol 2.5 MG/3 ML nebule NEB ONE (19:10)
[2018-12-21] MEDS ORDERED: ipratropium/albuterol 3ml nebule NEB ONE (19:10)
[2018-12-21 19:44] LABS: ALANINE AMINOTRANSFERASE 35 U/L (12-78); ALBUMIN 3.4 G/DL (3.4-5.0); ALKALINE PHOSPHATASE 49 IU/L (46-116); ANION GAP 6 (8-16); ASPARTATE AMINO TRANSFERASE 33 U/L (10-37); BILIRUBIN,TOTAL 0.2 MG/DL (0.1-1.0); BLOOD UREA NITROGEN 22 MG/DL (7-18); BUN/CREATININE RATIO 23.2 (6.6-38.0); CALCIUM 9.2 MG/DL (8.5-10.1); CHLORIDE 103 MMOL/L (99-107); CREATININE 0.95 MG/DL (0.40-0.90); GLUCOSE 99 MG/DL (70-104); POTASSIUM 3.9 MMOL/L (3.5-5.1); SODIUM 144 MMOL/L (135-145); TOTAL CARBON DIOXIDE 35.4 MMOL/L (24-32); TOTAL PROTEIN 6.8 G/DL (6.4-8.2); eGFR 56 ML/MIN
[2018-12-21 20:25] LABS: BASOPHILS % (AUTO) 0.5 % (0-1); EOSINOPHILS # (AUTO) 0.3 X10'3 (0-0.9); EOSINOPHILS % (AUTO) 3.2 % (0-6); HEMATOCRIT 35.8 % (35.0-45.0); LYMPHOCYTES # (AUTO) 2.5 X10'3 (1.1-4.8); LYMPHOCYTES % (AUTO) 31.1 % (21-51); MEAN CORPUSCULAR HEMOGLOBIN 32.1 PG (27.0-31.0); MEAN CORPUSCULAR HGB CONC 33.6 g/dL (33.0-36.5); MEAN CORPUSCULAR VOLUME 95.4 FL (78-98); MEAN PLATELET VOLUME 7.1 FL (7.4-10.4); MONOCYTES # (AUTO) 0.9 X10'3 (0-0.9); MONOCYTES % (AUTO) 10.5 % (2-12); NEUTROPHILS # (AUTO) 4.5 X10'3 (1.8-7.7); NEUTROPHILS % (AUTO) 54.7 % (42-75); PLATELET COUNT 217 X10'3 (140-440); RED BLOOD COUNT 3.75 X10'6 (4.20-5.60); RED CELL DISTRIBUTION WIDTH 14.8 % (11.5-14.5); WHITE BLOOD COUNT 8.2 X10'3 (4.5-11.0)
[2018-12-21 20:38] LABS: PARTIAL THROMBOPLASTIN TIME 24 SECONDS (22-32)
[2018-12-21] MEDS ORDERED: azithromycin 250mg tablet PO ONE (21:35)
[2018-12-21] MEDS ORDERED: PRE5T PO (22:10)
[2018-12-21] MEDS ORDERED: mag hydrox/Alum hydrox/simeth 30ml oral suspension PO PRN (23:20)
[2018-12-21] MEDS ORDERED: magnesium hydroxide 30ml (MOM) UD suspension PO PRN (23:20)
[2018-12-21] MEDS ORDERED: acetaminophen 325mg tablet PO PRN (23:20)
[2018-12-21] MEDS ORDERED: ondansetron/PF 4mg/2ml inj IV PRN (23:20)
[2018-12-21] MEDS ORDERED: non-formulary drug (Albuterol Sulfate Nebs* (Proventil Nebs*) 2.5 MG) IH PRN (23:25)
[2018-12-22 00:10] VITALS: BP 154/69
--- NOTE | 2018-12-22 00:10 | NUR ---
Pt brought to room via keely, oriented to room and routine. received report from елена CANSECO. pt amb with sba to bed millicent well, wears brace to left leg. Addendum: 12/22/18 at 0142 by Sai Johansen RN Amended: Links added.
[2018-12-22] MEDS ORDERED: tolterodine 2mg SR capsule (24hr) PO ONE (01:10)
[2018-12-22] MEDS ORDERED: traZODone 50mg tablet PO ONE (01:10)
[2018-12-22] MEDS: ipratropium/albuterol 3ml nebule IH SCH ×4 (03:15→20:36)
--- NOTE | 2018-12-22 06:38 | NUR ---
Problems reprioritized. Patient report given, questions answered & plan of care reviewed with AJITH MARES. Addendum: 12/22/18 at 0638 by Sai Johansen RN Amended: Links added.
[2018-12-22 06:44] LABS: BASOPHILS % (AUTO) 0.1 % (0-1); EOSINOPHILS % (AUTO) 0 % (0-6); HEMATOCRIT 36.3 % (35.0-45.0); LYMPHOCYTES # (AUTO) 0.6 X10'3 (1.1-4.8); LYMPHOCYTES % (AUTO) 10.9 % (21-51); MEAN CORPUSCULAR HEMOGLOBIN 31.9 PG (27.0-31.0); MEAN CORPUSCULAR HGB CONC 33.2 g/dL (33.0-36.5); MEAN CORPUSCULAR VOLUME 96.1 FL (78-98); MEAN PLATELET VOLUME 7.1 FL (7.4-10.4); MONOCYTES # (AUTO) 0.1 X10'3 (0-0.9); MONOCYTES % (AUTO) 2.5 % (2-12); NEUTROPHILS # (AUTO) 4.6 X10'3 (1.8-7.7); NEUTROPHILS % (AUTO) 86.5 % (42-75); PLATELET COUNT 209 X10'3 (140-440); RED BLOOD COUNT 3.78 X10'6 (4.20-5.60); RED CELL DISTRIBUTION WIDTH 14.6 % (11.5-14.5); WHITE BLOOD COUNT 5.3 X10'3 (4.5-11.0)
[2018-12-22 06:46] LABS: ALANINE AMINOTRANSFERASE 32 U/L (12-78); ALBUMIN/GLOBULIN RATIO 0.9 (1.1-1.5); ALKALINE PHOSPHATASE 48 IU/L (46-116); ANION GAP 5 (8-16); ASPARTATE AMINO TRANSFERASE 29 U/L (10-37); BILIRUBIN,TOTAL 0.3 MG/DL (0.1-1.0); BLOOD UREA NITROGEN 17 MG/DL (7-18); BUN/CREATININE RATIO 18.9 (6.6-38.0); CALCIUM 8.6 MG/DL (8.5-10.1); CHLORIDE 103 MMOL/L (99-107); GLUCOSE 148 MG/DL (70-104); POTASSIUM 3.9 MMOL/L (3.5-5.1); SODIUM 142 MMOL/L (135-145); TOTAL PROTEIN 6.3 G/DL (6.4-8.2); eGFR 59 ML/MIN
--- NOTE | 2018-12-22 06:52 | NUR ---
Patient in room [facility]. I have received report from Sai CANSECO and had the opportunity to ask questions and assume patient care.
--- NOTE | 2018-12-22 07:37 | NUR ---
Patient in room [facility]. I have received report from andrew CANSECO and had the opportunity to ask questions and assume patient care.
[2018-12-22 08:00] VITALS: BP 156/73
[2018-12-22] MEDS ORDERED: TIOTROPIUM BROMIDE 2.5 MCG INH SCH (08:00)
[2018-12-22] MEDS ORDERED: gabapentin 300mg capsule PO SCH (08:00)
[2018-12-22] MEDS ORDERED: azithromycin 250mg tablet PO SCH (08:00)
[2018-12-22] MEDS: DEXTROMETHORPHAN PO SCH (08:00)
[2018-12-22] MEDS: GUAIFENESIN PO SCH (08:00)
[2018-12-22] MEDS: budesonide 0.5mg/2ml UD nebule IH SCH ×2 (08:11→20:36)
[2018-12-22] MEDS: methylPREDNISolone sod succ 125mg/2ml vial IV SCH ×2 (08:15→22:12)
[2018-12-22] MEDS: potassium chloride 10mEq ER tablet PO SCH (08:17)
[2018-12-22] MEDS: furosemide 20MG tablet PO SCH (08:17)
[2018-12-22] MEDS: levoTHYROXINE 88mcg tablet PO SCH (08:17)
[2018-12-22] MEDS: azithromycin 250mg tablet PO SCH (08:17)
[2018-12-22] MEDS: clopidogrel 75mg tablet PO SCH (08:17)
[2018-12-22] MEDS: tolterodine 2mg SR capsule (24hr) PO SCH (08:18)
[2018-12-22] MEDS: polyvinyl alcohol ophthalmic drops 15ml bottle EACHEYE SCH (08:18)
[2018-12-22] MEDS: heparin, porcine 5000 units/ml vial SQ SCH ×2 (08:19→22:14)
[2018-12-22 11:44] VITALS: BP 129/69
[2018-12-22] MEDS ORDERED: ATEN50TA PO (12:29)
[2018-12-22] MEDS ORDERED: FORM20VI NEB (12:29)
[2018-12-22] MEDS ORDERED: IPRA3AMP9 NEB (12:29)
[2018-12-22 18:00] VITALS: BP 143/72
--- NOTE | 2018-12-22 18:42 | NUR ---
Problems reprioritized. Patient report given, questions answered & plan of care reviewed with Graham CANSECO.
--- NOTE | 2018-12-22 18:42 | NUR ---
report received from AJITH Sidhu
[2018-12-22] MEDS ORDERED: traZODone 50mg tablet PO SCH (21:00)
[2018-12-22] MEDS ORDERED: atorvastatin 20mg tablet PO SCH (21:00)
[2018-12-22] MEDS: lactobacillus rhamnosus 10,000 MMU CELLS/CAPSULE PO SCH (22:14)
[2018-12-22] MEDS: gabapentin 300mg capsule PO SCH (22:14)
[2018-12-23] VITALS: BP 146/61
[2018-12-23] MEDS: ipratropium/albuterol 3ml nebule IH SCH ×2 (03:49→08:17)
[2018-12-23 06:09] LABS: BASOPHILS % (AUTO) 0.1 % (0-1); EOSINOPHILS % (AUTO) 0 % (0-6); HEMATOCRIT 34.7 % (35.0-45.0); HEMOGLOBIN 11.6 g/dl (12.0-16.0); LYMPHOCYTES # (AUTO) 0.7 X10'3 (1.1-4.8); LYMPHOCYTES % (AUTO) 9.2 % (21-51); MEAN CORPUSCULAR HEMOGLOBIN 32.3 PG (27.0-31.0); MEAN CORPUSCULAR HGB CONC 33.5 g/dL (33.0-36.5); MEAN CORPUSCULAR VOLUME 96.5 FL (78-98); MEAN PLATELET VOLUME 7.3 FL (7.4-10.4); MONOCYTES # (AUTO) 0.3 X10'3 (0-0.9); MONOCYTES % (AUTO) 4.7 % (2-12); NEUTROPHILS # (AUTO) 6.2 X10'3 (1.8-7.7); PLATELET COUNT 225 X10'3 (140-440); RED BLOOD COUNT 3.59 X10'6 (4.20-5.60); RED CELL DISTRIBUTION WIDTH 15.2 % (11.5-14.5); WHITE BLOOD COUNT 7.2 X10'3 (4.5-11.0)
[2018-12-23 06:30] LABS: ALANINE AMINOTRANSFERASE 29 U/L (12-78); ALBUMIN/GLOBULIN RATIO 0.9 (1.1-1.5); ALKALINE PHOSPHATASE 42 IU/L (46-116); ANION GAP 5 (8-16); ASPARTATE AMINO TRANSFERASE 30 U/L (10-37); BILIRUBIN,TOTAL 0.2 MG/DL (0.1-1.0); BLOOD UREA NITROGEN 24 MG/DL (7-18); BUN/CREATININE RATIO 21.2 (6.6-38.0); CALCIUM 8.8 MG/DL (8.5-10.1); CHLORIDE 105 MMOL/L (99-107); CREATININE 1.13 MG/DL (0.40-0.90); GLUCOSE 129 MG/DL (70-104); SODIUM 144 MMOL/L (135-145); TOTAL CARBON DIOXIDE 34.1 MMOL/L (24-32); TOTAL PROTEIN 6.2 G/DL (6.4-8.2); eGFR 45 ML/MIN
--- NOTE | 2018-12-23 06:42 | NUR ---
Patient in room [facility]. I have received report from Graham CANSECO and had the opportunity to ask questions and assume patient care.
[2018-12-23 07:29] VITALS: BP 171/76
[2018-12-23] MEDS: DEXTROMETHORPHAN PO SCH (08:00)
[2018-12-23] MEDS: GUAIFENESIN PO SCH (08:00)
[2018-12-23] MEDS: budesonide 0.5mg/2ml UD nebule IH SCH (08:17)
[2018-12-23] MEDS ORDERED: atenolol 25mg tablet PO ONE (08:40)
[2018-12-23] MEDS: lactobacillus rhamnosus 10,000 MMU CELLS/CAPSULE PO SCH (09:04)
[2018-12-23] MEDS: furosemide 20MG tablet PO SCH (09:05)
[2018-12-23] MEDS: potassium chloride 10mEq ER tablet PO SCH (09:05)
[2018-12-23] MEDS: gabapentin 300mg capsule PO SCH (09:05)
[2018-12-23] MEDS: clopidogrel 75mg tablet PO SCH (09:05)
[2018-12-23] MEDS: levoTHYROXINE 88mcg tablet PO SCH (09:05)
[2018-12-23] MEDS: methylPREDNISolone sod succ 125mg/2ml vial IV SCH (09:06)
[2018-12-23] MEDS: azithromycin 250mg tablet PO SCH (09:06)
[2018-12-23] MEDS: heparin, porcine 5000 units/ml vial SQ SCH (09:07)
[2018-12-23] MEDS: tolterodine 2mg SR capsule (24hr) PO SCH (09:23)
[2018-12-23] MEDS: polyvinyl alcohol ophthalmic drops 15ml bottle EACHEYE SCH (09:23)
--- NOTE | 2018-12-23 10:08 | NUR ---
I have reviewed and agree with all medications administered and interventions performed by STEEL MANAGER Student Ava Balbuena.
[2018-12-23 12:00] VITALS: BP 148/72
[2018-12-23] MEDS ORDERED: AZI25OT PO (12:08)
[2018-12-23] MEDS ORDERED: PRED5TAB PO (12:08)
--- NOTE | 2018-12-23 14:53 | NUR ---
Pt D/C'd per [facility]. pt in stable condition, medication and discharge instruction given to pt. Pt left this hospital via private vehicle accompanied by family member.
== END 2018-12-23 14:25 | disposition home health service (06) | DRG 189 ==
LOC: ER 18:58 → ED HOLD 23:25 → SUR 3N 23:55 → CMPBEDREQ 12-22 00:21
PROVIDERS: ADMIT Internal Medicine; ATTEND Family Medicine
DX: J96.20 Acute and chronic respiratory failure, unspecified whether with hypoxia or hypercapnia (principal); J44.1 Chronic obstructive pulmonary disease with (acute) exacerbation; J44.0 Chronic obstructive pulmonary disease with (acute) lower respiratory infection; J20.9 Acute bronchitis, unspecified; E78.5 Hyperlipidemia, unspecified; J38.00 Paralysis of vocal cords and larynx, unspecified; I11.0 Hypertensive heart disease with heart failure; I50.9 Heart failure, unspecified; Z87.891 Personal history of nicotine dependence; Z90.12 Acquired absence of left breast and nipple; Z95.2 Presence of prosthetic heart valve; Z99.81 Dependence on supplemental oxygen; Z88.0 Allergy status to penicillin; Z88.1 Allergy status to other antibiotic agents
CPT/HCPCS: 36415; 71045; 80053; 83880; 85025; 85610; 85730; 87081; 93005; 94640; 94760; 96374; 99285; G0378; J1644; J2930; J7626

== ENCOUNTER 2019-01-04 11:55 | Emergency (ER) | payer MEDICARE, OTHER ==
[~2019-01-04] VITALS: Ht 154.9 cm; Wt 80.0 kg
[~2019-01-04 11:55] MED LIST changes: -ATEN-169 PO; +ATEN50TA PO; +AZI25OT PO; -BUDE10.2 INH; +FORM20VI NEB; +IPRA3AMP9 NEB; +PRE5T PO; +PRED5TAB PO; -TIOT18CA3 INH; -VIT1CAPS9 PO
[2019-01-04 13:04] LABS: BASOPHILS % (AUTO) 0.3 % (0-1); EOSINOPHILS % (AUTO) 0.4 % (0-6); HEMATOCRIT 39.4 % (35.0-45.0); HEMOGLOBIN 12.9 g/dl (12.0-16.0); LYMPHOCYTES # (AUTO) 1.1 X10'3 (1.1-4.8); LYMPHOCYTES % (AUTO) 12.1 % (21-51); MEAN CORPUSCULAR HEMOGLOBIN 31.4 PG (27.0-31.0); MEAN CORPUSCULAR HGB CONC 32.8 g/dL (33.0-36.5); MEAN CORPUSCULAR VOLUME 95.8 FL (78-98); MONOCYTES # (AUTO) 0.4 X10'3 (0-0.9); MONOCYTES % (AUTO) 4.8 % (2-12); NEUTROPHILS # (AUTO) 7.5 X10'3 (1.8-7.7); NEUTROPHILS % (AUTO) 82.4 % (42-75); PLATELET COUNT 189 X10'3 (140-440); RED BLOOD COUNT 4.12 X10'6 (4.20-5.60); RED CELL DISTRIBUTION WIDTH 15.2 % (11.5-14.5); WHITE BLOOD COUNT 9.1 X10'3 (4.5-11.0)
[2019-01-04] MEDS ORDERED: methylPREDNISolone sod succ 125mg/2ml vial IV ONE (13:15)
[2019-01-04] MEDS ORDERED: ipratropium/albuterol 3ml nebule NEB ONE (13:15)
[2019-01-04 13:17] LABS: ALANINE AMINOTRANSFERASE 36 U/L (12-78); ALBUMIN 3.3 G/DL (3.4-5.0); ALBUMIN/GLOBULIN RATIO 1.1 (1.1-1.5); ALKALINE PHOSPHATASE 49 IU/L (46-116); ANION GAP 4 (8-16); ASPARTATE AMINO TRANSFERASE 36 U/L (10-37); BILIRUBIN,TOTAL 0.3 MG/DL (0.1-1.0); BLOOD UREA NITROGEN 19 MG/DL (7-18); BUN/CREATININE RATIO 17.9 (6.6-38.0); CALCIUM 9.4 MG/DL (8.5-10.1); CHLORIDE 102 MMOL/L (99-107); CREATININE 1.06 MG/DL (0.40-0.90); GLUCOSE 101 MG/DL (70-104); POTASSIUM 3.8 MMOL/L (3.5-5.1); SODIUM 145 MMOL/L (135-145); TOTAL PROTEIN 6.4 G/DL (6.4-8.2); eGFR 49 ML/MIN
[2019-01-04 14:14] VITALS: BP 152/74
[2019-01-04] MEDS ORDERED: albuterol 2.5 MG/3 ML nebule NEB ONE (14:15)
[2019-01-04] MEDS ORDERED: PRED20TA PO (14:55)
[2019-01-04] MEDS ORDERED: LEVO750T21 PO (14:55)
== END 2019-01-04 15:45 | disposition home or self-care (01) ==
LOC: ER 11:56
DX: J44.1 Chronic obstructive pulmonary disease with (acute) exacerbation (principal); I11.0 Hypertensive heart disease with heart failure; I50.9 Heart failure, unspecified; Z86.73 Personal history of transient ischemic attack (TIA), and cerebral infarction without residual deficits; Z87.891 Personal history of nicotine dependence; Z88.0 Allergy status to penicillin; Z88.1 Allergy status to other antibiotic agents; Z88.8 Allergy status to other drugs, medicaments and biological substances; Z79.899 Other long term (current) drug therapy
CPT/HCPCS: 36415; 71045; 80053; 83605; 83880; 84484; 85025; 87040; 93005; 94640; 96374; 99284; J2930; 94760

== ENCOUNTER 2019-01-10 20:21 | Inpatient (IN) | payer MEDICARE, OTHER ==
[~2019-01-10] VITALS: Ht 154.9 cm; Wt 62.0 kg
[~2019-01-10 20:21] MED LIST changes: +LEVO750T21 PO; +PRED20TA PO
[2019-01-10] MEDS ORDERED: albuterol 2.5 MG/3 ML nebule NEB ONE (20:40)
[2019-01-10] MEDS ORDERED: methylPREDNISolone sod succ 125mg/2ml vial IV ONE (20:40)
[2019-01-10] MEDS ORDERED: CALCIUM PO (20:40)
[2019-01-10] MEDS ORDERED: CARB10DR5 EACHEYE (20:47)
[2019-01-10] MEDS ORDERED: ASCO500C15 PO (20:47)
[2019-01-10] MEDS ORDERED: VIT1CAPS9 PO (20:47)
[2019-01-10 21:10] LABS: BASOPHILS % (AUTO) 0.3 % (0-1); EOSINOPHILS % (AUTO) 0 % (0-6); HEMATOCRIT 39.6 % (35.0-45.0); HEMOGLOBIN 13.1 g/dl (12.0-16.0); MEAN CORPUSCULAR HEMOGLOBIN 31.4 PG (27.0-31.0); MEAN CORPUSCULAR VOLUME 94.9 FL (78-98); MEAN PLATELET VOLUME 7.2 FL (7.4-10.4); MONOCYTES # (AUTO) 0.6 X10'3 (0-0.9); MONOCYTES % (AUTO) 7.1 % (2-12); NEUTROPHILS # (AUTO) 6.4 X10'3 (1.8-7.7); NEUTROPHILS % (AUTO) 80.6 % (42-75); PLATELET COUNT 276 X10'3 (140-440); RED BLOOD COUNT 4.17 X10'6 (4.20-5.60)
[2019-01-10 21:18] LABS: PARTIAL THROMBOPLASTIN TIME 25 SECONDS (22-32)
[2019-01-10 21:21] LABS: ALANINE AMINOTRANSFERASE 37 U/L (12-78); ALBUMIN 3.2 G/DL (3.4-5.0); ALBUMIN/GLOBULIN RATIO 0.9 (1.1-1.5); ALKALINE PHOSPHATASE 47 IU/L (46-116); ANION GAP 3 (8-16); ASPARTATE AMINO TRANSFERASE 22 U/L (10-37); BILIRUBIN,TOTAL 0.3 MG/DL (0.1-1.0); BLOOD UREA NITROGEN 28 MG/DL (7-18); CALCIUM 8.9 MG/DL (8.5-10.1); CHLORIDE 102 MMOL/L (99-107); CREATININE 1.22 MG/DL (0.40-0.90); GLUCOSE 118 MG/DL (70-104); POTASSIUM 4.3 MMOL/L (3.5-5.1); SODIUM 143 MMOL/L (135-145); TOTAL CARBON DIOXIDE 37.6 MMOL/L (24-32); TOTAL PROTEIN 6.7 G/DL (6.4-8.2); eGFR 42 ML/MIN
--- NOTE | 2019-01-10 21:42 | NUR ---
HER SISTER IS HERE TO VISIT.
--- NOTE | 2019-01-10 22:10 | NUR ---
PT GIVEN WARM BLANKETS. DENIES NEEDS AT THIS TIME. SISTER AT BEDSIDE
[2019-01-10] MEDS ORDERED: azithromycin/NS 500mg/250ml 250 ML IV ONE (22:25)
[2019-01-10] MEDS ORDERED: cefepime 2g/NS 100ml ADVANTAGE 100 ML IV ONE (22:25)
[2019-01-10] MEDS ORDERED: magnesium hydroxide 30ml (MOM) UD suspension PO PRN (22:35)
[2019-01-10] MEDS ORDERED: acetaminophen 325mg tablet PO PRN ×2 (22:35)
[2019-01-10] MEDS ORDERED: ondansetron/PF 4mg/2ml inj IV PRN (22:35)
[2019-01-10] MEDS ORDERED: albuterol 2.5 MG/3 ML nebule NEB PRN (22:35)
[2019-01-10] MEDS ORDERED: mag hydrox/Alum hydrox/simeth 30ml oral suspension PO PRN (22:35)
[2019-01-10] MEDS ORDERED: piperacillin/tazo 3.375gm/50ml 50 ML IV ONE (22:40)
[2019-01-10] MEDS: ipratropium/albuterol 3ml nebule NEB SCH (23:12)
[2019-01-11] VITALS: BP 161/79
[2019-01-11] MEDS: ipratropium/albuterol 3ml nebule NEB SCH ×6 (03:48→23:13)
[2019-01-11 05:04] LABS: BASOPHILS % (AUTO) 0.1 % (0-1); EOSINOPHILS % (AUTO) 0.1 % (0-6); HEMATOCRIT 37.1 % (35.0-45.0); HEMOGLOBIN 12.2 g/dl (12.0-16.0); LYMPHOCYTES # (AUTO) 0.3 X10'3 (1.1-4.8); LYMPHOCYTES % (AUTO) 4.9 % (21-51); MEAN CORPUSCULAR HEMOGLOBIN 31.6 PG (27.0-31.0); MEAN CORPUSCULAR VOLUME 95.8 FL (78-98); MEAN PLATELET VOLUME 7.1 FL (7.4-10.4); MONOCYTES # (AUTO) 0.1 X10'3 (0-0.9); MONOCYTES % (AUTO) 2.1 % (2-12); NEUTROPHILS # (AUTO) 5.9 X10'3 (1.8-7.7); NEUTROPHILS % (AUTO) 92.8 % (42-75); PLATELET COUNT 219 X10'3 (140-440); RED BLOOD COUNT 3.87 X10'6 (4.20-5.60); WHITE BLOOD COUNT 6.4 X10'3 (4.5-11.0)
[2019-01-11] MEDS: HYDROcodone/acetaminophen 5mg/325mg tablet PO PRN ×2 (05:10→19:23)
[2019-01-11 05:22] LABS: ALBUMIN 2.9 G/DL (3.4-5.0); ANION GAP 2 (8-16); BLOOD UREA NITROGEN 21 MG/DL (7-18); BUN/CREATININE RATIO 20.2 (6.6-38.0); CALCIUM 8.5 MG/DL (8.5-10.1); CHLORIDE 103 MMOL/L (99-107); CREATININE 1.04 MG/DL (0.40-0.90); GLUCOSE 160 MG/DL (70-104); POTASSIUM 4.1 MMOL/L (3.5-5.1); SODIUM 142 MMOL/L (135-145); TOTAL CARBON DIOXIDE 37.4 MMOL/L (24-32); eGFR 50 ML/MIN
--- NOTE | 2019-01-11 05:27 | NUR ---
Call to Dr. Ray for pain med order with order received and given.
--- NOTE | 2019-01-11 06:40 | NUR ---
Patient in room [facility]. I have received report from Hanny CANSECO and had the opportunity to ask questions and assume patient care.
[2019-01-11 07:00] VITALS: BP 168/80
[2019-01-11] MEDS: albuterol 2.5 MG/3 ML nebule NEB SCH ×2 (07:54)
[2019-01-11] MEDS ORDERED: REFRESH RELIEVA EACHEYE SCH (08:00)
[2019-01-11] MEDS ORDERED: cefepime 2gm inj IV SCH (08:00)
[2019-01-11] MEDS ORDERED: gabapentin 300mg capsule PO SCH (08:00)
[2019-01-11] MEDS: methylPREDNISolone sod succ 125mg/2ml vial IV SCH ×2 (08:20→21:15)
[2019-01-11] MEDS: ascorbic acid 500mg tablet PO SCH (08:21)
[2019-01-11] MEDS: beta-carotene(A) w/C & E + minerals tab PO SCH (08:21)
[2019-01-11] MEDS: calcium carbonate 500mg tablet PO SCH (08:22)
[2019-01-11] MEDS: multivitamins, therapeutics tablet PO SCH (08:22)
[2019-01-11] MEDS: potassium chloride 10mEq ER tablet PO SCH (08:22)
[2019-01-11] MEDS: furosemide 20MG tablet PO SCH (08:23)
[2019-01-11] MEDS: levoTHYROXINE 88mcg tablet PO SCH (08:23)
[2019-01-11] MEDS: clopidogrel 75mg tablet PO SCH (08:23)
[2019-01-11] MEDS: heparin, porcine 5000 units/ml vial SQ SCH ×2 (08:30→20:30)
[2019-01-11] MEDS: CEFEPIME 2 GM in NS 100ml IV.SOLN 100 ML IV SCH ×2 (10:07→21:15)
[2019-01-11 11:00] VITALS: BP 156/60
[2019-01-11] MEDS: azithromycin/NS 500mg/250ml 250 ML IV SCH (11:07)
[2019-01-11 19:00] VITALS: BP 161/71
--- NOTE | 2019-01-11 19:00 | NUR ---
Problems reprioritized. Patient report given, questions answered & plan of care reviewed with Pat RN.
[2019-01-11 20:20] VITALS: BP 154/74
[2019-01-11] MEDS: tolterodine 2mg SR capsule (24hr) PO SCH (20:30)
[2019-01-11] MEDS: traZODone 50mg tablet PO SCH (20:30)
[2019-01-11] MEDS: atenolol 50mg tablet PO SCH (20:30)
[2019-01-11] MEDS: atorvastatin 20mg tablet PO SCH (20:30)
[2019-01-11] MEDS: lactobacillus rhamnosus 10,000 MMU CELLS/CAPSULE PO SCH (20:30)
--- NOTE | 2019-01-11 21:15 | NUR ---
all meds scanned at 2029, but not saved; IV meds held till 2114 when new PIV was placed
[2019-01-12] VITALS: BP 150/87
[2019-01-12] MEDS: ipratropium/albuterol 3ml nebule NEB SCH ×6 (02:49→23:32)
[2019-01-12 04:56] LABS: BASOPHILS % (AUTO) 0.1 % (0-1); EOSINOPHILS % (AUTO) 0 % (0-6); HEMATOCRIT 36.6 % (35.0-45.0); HEMOGLOBIN 12.2 g/dl (12.0-16.0); LYMPHOCYTES # (AUTO) 0.7 X10'3 (1.1-4.8); MEAN CORPUSCULAR HEMOGLOBIN 31.7 PG (27.0-31.0); MEAN CORPUSCULAR HGB CONC 33.3 g/dL (33.0-36.5); MEAN CORPUSCULAR VOLUME 95.2 FL (78-98); MEAN PLATELET VOLUME 7.4 FL (7.4-10.4); MONOCYTES # (AUTO) 0.7 X10'3 (0-0.9); MONOCYTES % (AUTO) 8.1 % (2-12); NEUTROPHILS # (AUTO) 7.5 X10'3 (1.8-7.7); NEUTROPHILS % (AUTO) 83.8 % (42-75); PLATELET COUNT 230 X10'3 (140-440); RED BLOOD COUNT 3.85 X10'6 (4.20-5.60); WHITE BLOOD COUNT 8.9 X10'3 (4.5-11.0)
[2019-01-12 05:05] LABS: ALBUMIN 2.6 G/DL (3.4-5.0); ANION GAP 1 (8-16); BLOOD UREA NITROGEN 23 MG/DL (7-18); BUN/CREATININE RATIO 26.4 (6.6-38.0); CALCIUM 8.7 MG/DL (8.5-10.1); CHLORIDE 106 MMOL/L (99-107); CREATININE 0.87 MG/DL (0.40-0.90); GLUCOSE 115 MG/DL (70-104); POTASSIUM 4.5 MMOL/L (3.5-5.1); SODIUM 144 MMOL/L (135-145); TOTAL CARBON DIOXIDE 37.1 MMOL/L (24-32); eGFR 61 ML/MIN
[2019-01-12] MEDS: HYDROcodone/acetaminophen 5mg/325mg tablet PO PRN (05:05)
[2019-01-12 07:00] VITALS: BP 137/74
[2019-01-12] MEDS: clopidogrel 75mg tablet PO SCH (08:14)
[2019-01-12] MEDS: polyvinyl alcohol ophthalmic drops 15ml bottle EACHEYE SCH (08:14)
[2019-01-12] MEDS: lactobacillus rhamnosus 10,000 MMU CELLS/CAPSULE PO SCH ×2 (08:14→20:39)
[2019-01-12] MEDS: calcium carbonate 500mg tablet PO SCH (08:14)
[2019-01-12] MEDS: beta-carotene(A) w/C & E + minerals tab PO SCH (08:14)
[2019-01-12] MEDS: ascorbic acid 500mg tablet PO SCH (08:14)
[2019-01-12] MEDS: potassium chloride 10mEq ER tablet PO SCH (08:14)
[2019-01-12] MEDS: methylPREDNISolone sod succ 125mg/2ml vial IV SCH ×2 (08:15→20:38)
[2019-01-12] MEDS: multivitamins, therapeutics tablet PO SCH (08:15)
[2019-01-12] MEDS: gabapentin 300mg capsule PO SCH (08:15)
[2019-01-12] MEDS: furosemide 20MG tablet PO SCH (08:15)
[2019-01-12] MEDS: heparin, porcine 5000 units/ml vial SQ SCH ×2 (08:16→20:44)
[2019-01-12] MEDS: levoTHYROXINE 88mcg tablet PO SCH (08:16)
[2019-01-12] MEDS: CEFEPIME 2 GM in NS 100ml IV.SOLN 100 ML IV SCH ×2 (08:16→20:31)
--- NOTE | 2019-01-12 08:30 | NUR ---
Pt. stated that her food was not cut up enough. cut all of her breakfast to very small pieces and ordered ground diet.
[2019-01-12] MEDS: azithromycin/NS 500mg/250ml 250 ML IV SCH (09:27)
--- NOTE | 2019-01-12 11:02 | NUR ---
PAGER ID: [phone] MESSAGE: Nubia Ayush 348A BP 174/79, no PRN bp med. ordered. Venous C02 37.1. do you want ABGs? Happy thanksgiving! Hanny [id number]
[2019-01-12 11:03] VITALS: BP 174/79
--- NOTE | 2019-01-12 12:30 | NUR ---
Spoke to about C02 and SBP above 160. stated he would review vitals. No new orders at this time. Will cont. to monitor pt. on my shift.
[2019-01-12 14:35] VITALS: BP 158/64
--- NOTE | 2019-01-12 18:16 | NUR ---
Problems reprioritized. Patient report given, questions answered & plan of care reviewed with Rahat Shell. Pt. awake and alert eating dinner in room. Wants a shower/bed bath. Passed on in report.
--- NOTE | 2019-01-12 18:20 | NUR ---
Patient in room [facility]. I have received report from Hanny Giang and had the opportunity to ask questions and assume patient care. Addendum: 01/12/19 at 2211 by Sumaya Vargas RN Amended: Links added.
[2019-01-12 20:00] VITALS: BP 154/71
--- NOTE | 2019-01-12 20:05 | NUR ---
took hs meds with applesauce and noted course sonorous expiratory wheeze with occasional moist cough. non productive. pt tolerated well and medicated with tylenol for back and shoulder pain 08/24.
[2019-01-12] MEDS: atorvastatin 20mg tablet PO SCH (20:40)
[2019-01-12] MEDS: traZODone 50mg tablet PO SCH (20:41)
[2019-01-12] MEDS: atenolol 50mg tablet PO SCH (20:41)
[2019-01-12] MEDS: tolterodine 2mg SR capsule (24hr) PO SCH (20:43)
--- NOTE | 2019-01-12 22:00 | NUR ---
pt resting without s&s of distress.
--- NOTE | 2019-01-12 23:00 | NUR ---
pt resting eyes closed without s&s of distress at this time.
[2019-01-13] VITALS: BP 173/76
--- NOTE | 2019-01-13 00:45 | NUR ---
pt awoke confused voided on bedside commode after reorient her. put back to bed with pur wicc for stress incontinence.
--- NOTE | 2019-01-13 02:38 | NUR ---
resting eyes closed without changes.
[2019-01-13] MEDS: ipratropium/albuterol 3ml nebule NEB SCH ×6 (03:15→23:17)
--- NOTE | 2019-01-13 04:21 | NUR ---
resting eyes closed without changes. bed alarm on for pt safety
[2019-01-13 05:15] LABS: BASOPHILS % (AUTO) 0 % (0-1); EOSINOPHILS % (AUTO) 0 % (0-6); HEMATOCRIT 35.4 % (35.0-45.0); HEMOGLOBIN 11.7 g/dl (12.0-16.0); LYMPHOCYTES # (AUTO) 0.5 X10'3 (1.1-4.8); LYMPHOCYTES % (AUTO) 6.6 % (21-51); MEAN CORPUSCULAR HEMOGLOBIN 31.3 PG (27.0-31.0); MEAN CORPUSCULAR VOLUME 94.9 FL (78-98); MONOCYTES # (AUTO) 0.4 X10'3 (0-0.9); MONOCYTES % (AUTO) 5.5 % (2-12); NEUTROPHILS # (AUTO) 6.8 X10'3 (1.8-7.7); NEUTROPHILS % (AUTO) 87.9 % (42-75); PLATELET COUNT 217 X10'3 (140-440); RED BLOOD COUNT 3.73 X10'6 (4.20-5.60); RED CELL DISTRIBUTION WIDTH 15.2 % (11.5-14.5); WHITE BLOOD COUNT 7.7 X10'3 (4.5-11.0)
[2019-01-13 05:35] LABS: ALBUMIN 2.6 G/DL (3.4-5.0); ANION GAP 2 (8-16); BLOOD UREA NITROGEN 28 MG/DL (7-18); BUN/CREATININE RATIO 26.2 (6.6-38.0); CALCIUM 8.6 MG/DL (8.5-10.1); CHLORIDE 105 MMOL/L (99-107); CREATININE 1.07 MG/DL (0.40-0.90); GLUCOSE 129 MG/DL (70-104); POTASSIUM 4.2 MMOL/L (3.5-5.1); SODIUM 144 MMOL/L (135-145); TOTAL CARBON DIOXIDE 36.9 MMOL/L (24-32); eGFR 48 ML/MIN
--- NOTE | 2019-01-13 06:11 | NUR ---
Problems reprioritized. Patient report given, questions answered & plan of care reviewed with Megan Giang. Addendum: 01/13/19 at 0611 by Sumaya Vargas RN Amended: Links added.
--- NOTE | 2019-01-13 06:15 | NUR ---
Patient in room [facility]. I have received report from GEOVANNI CANSECO and had the opportunity to ask questions and assume patient care.
[2019-01-13 06:48] LABS: TOTAL CELLS COUNTED 100
[2019-01-13 06:49] LABS: PLATELET ESTIMATE NORMAL
[2019-01-13 07:11] VITALS: BP 100/61
--- NOTE | 2019-01-13 07:50 | NUR ---
RT came while pt was eating her breakfast. she states she will be back to do her TX after
--- NOTE | 2019-01-13 07:55 | NUR ---
CAME TO GIVE PT HER SVN TX. STATED SHE WANTED TO EAT HER BREAKFAST. WILL ATTEMPT TO COME BACK LATER.
[2019-01-13] MEDS: lactobacillus rhamnosus 10,000 MMU CELLS/CAPSULE PO SCH ×2 (09:07→21:03)
[2019-01-13] MEDS: clopidogrel 75mg tablet PO SCH (09:07)
[2019-01-13] MEDS: calcium carbonate 500mg tablet PO SCH (09:07)
[2019-01-13] MEDS: furosemide 20MG tablet PO SCH (09:07)
[2019-01-13] MEDS: levoTHYROXINE 88mcg tablet PO SCH (09:07)
[2019-01-13] MEDS: beta-carotene(A) w/C & E + minerals tab PO SCH (09:08)
[2019-01-13] MEDS: ascorbic acid 500mg tablet PO SCH (09:08)
[2019-01-13] MEDS: multivitamins, therapeutics tablet PO SCH (09:08)
[2019-01-13] MEDS: heparin, porcine 5000 units/ml vial SQ SCH ×2 (09:08→21:04)
[2019-01-13] MEDS: gabapentin 300mg capsule PO SCH (09:08)
[2019-01-13] MEDS: methylPREDNISolone sod succ 125mg/2ml vial IV SCH ×2 (09:09→21:04)
[2019-01-13] MEDS: HYDROcodone/acetaminophen 5mg/325mg tablet PO PRN (09:16)
[2019-01-13] MEDS: CEFEPIME 2 GM in NS 100ml IV.SOLN 100 ML IV SCH ×2 (09:23→21:04)
[2019-01-13] MEDS: azithromycin/NS 500mg/250ml 250 ML IV SCH (09:23)
--- NOTE | 2019-01-13 09:40 | NUR ---
respiratory paged for PRN breathing tx.
[2019-01-13] MEDS: potassium chloride 10mEq ER tablet PO SCH (09:57)
[2019-01-13] MEDS: polyvinyl alcohol ophthalmic drops 15ml bottle EACHEYE SCH (09:58)
--- NOTE | 2019-01-13 09:58 | NUR ---
pulled the potassium pill and dropped it on the ground. had to take another from the omnicell
--- NOTE | 2019-01-13 10:11 | NUR ---
PT STILL HAS NOT RECEIVED HER 0700 BREATHING TX. THEY CAME LATE AND SHE WAS ALREADY EATING BREAKFAST. PAGED RT TO COME DO TX. PT HAS ASKED TWICE.
[2019-01-13 11:00] VITALS: BP 161/75
[2019-01-13] MEDS ORDERED: hydrALAZINE 20mg/ml inj. IV PRN (11:10)
--- NOTE | 2019-01-13 17:41 | NUR ---
Problems reprioritized. Patient report given, questions answered & plan of care reviewed with JACQUELINE CANSECO.
--- NOTE | 2019-01-13 18:15 | NUR ---
Received report from Megan CANSECO pt is awake eating dinner wearing 3L of O2 via NC in no apparent distress, call light and items of freq use within reach.
[2019-01-13 19:00] VITALS: BP 160/64
[2019-01-13] MEDS: traZODone 50mg tablet PO SCH (21:03)
[2019-01-13] MEDS: atenolol 50mg tablet PO SCH (21:03)
[2019-01-13] MEDS: atorvastatin 20mg tablet PO SCH (21:03)
[2019-01-13] MEDS: tolterodine 2mg SR capsule (24hr) PO SCH (21:04)
[2019-01-14] VITALS: BP 187/78
[2019-01-14] MEDS: HYDROcodone/acetaminophen 5mg/325mg tablet PO PRN (01:58)
[2019-01-14] MEDS: ipratropium/albuterol 3ml nebule NEB SCH ×6 (03:24→23:18)
--- NOTE | 2019-01-14 04:03 | NUR ---
Bladder scanned pt had over 600 in bladder, called MD to get straight cath,
[2019-01-14 06:03] LABS: ALBUMIN 2.6 G/DL (3.4-5.0); ANION GAP 4 (8-16); BLOOD UREA NITROGEN 30 MG/DL (7-18); BUN/CREATININE RATIO 31.3 (6.6-38.0); CHLORIDE 104 MMOL/L (99-107); CREATININE 0.96 MG/DL (0.40-0.90); GLUCOSE 126 MG/DL (70-104); POTASSIUM 4.2 MMOL/L (3.5-5.1); SODIUM 144 MMOL/L (135-145); TOTAL CARBON DIOXIDE 35.6 MMOL/L (24-32); eGFR 55 ML/MIN
--- NOTE | 2019-01-14 06:18 | NUR ---
Gave report to Megan CANSECO pt is resting on 4L of O2 via NC in no apparent distress, breaths even and unlabored
[2019-01-14 06:26] LABS: BASOPHILS % (AUTO) 0.2 % (0-1); EOSINOPHILS % (AUTO) 0.1 % (0-6); HEMATOCRIT 36.6 % (35.0-45.0); HEMOGLOBIN 12.3 g/dl (12.0-16.0); LYMPHOCYTES # (AUTO) 0.6 X10'3 (1.1-4.8); LYMPHOCYTES % (AUTO) 6.4 % (21-51); MEAN CORPUSCULAR HEMOGLOBIN 31.6 PG (27.0-31.0); MEAN CORPUSCULAR HGB CONC 33.4 g/dL (33.0-36.5); MEAN CORPUSCULAR VOLUME 94.6 FL (78-98); MEAN PLATELET VOLUME 7.6 FL (7.4-10.4); MONOCYTES # (AUTO) 0.7 X10'3 (0-0.9); NEUTROPHILS # (AUTO) 8.1 X10'3 (1.8-7.7); NEUTROPHILS % (AUTO) 86.3 % (42-75); PLATELET COUNT 246 X10'3 (140-440); RED BLOOD COUNT 3.87 X10'6 (4.20-5.60); RED CELL DISTRIBUTION WIDTH 15.2 % (11.5-14.5); WHITE BLOOD COUNT 9.4 X10'3 (4.5-11.0)
--- NOTE | 2019-01-14 06:37 | NUR ---
Patient in room [facility]. I have received report from JACQUELINE CANSECO and had the opportunity to ask questions and assume patient care.
[2019-01-14 07:00] VITALS: BP 160/70
[2019-01-14 07:21] LABS: ANISOCYTOSIS FEW; PLATELET ESTIMATE NORMAL; TOTAL CELLS COUNTED 100
[2019-01-14] MEDS: ascorbic acid 500mg tablet PO SCH (08:25)
[2019-01-14] MEDS: levoTHYROXINE 88mcg tablet PO SCH (08:25)
[2019-01-14] MEDS: potassium chloride 10mEq ER tablet PO SCH (08:25)
[2019-01-14] MEDS: furosemide 20MG tablet PO SCH (08:25)
[2019-01-14] MEDS: azithromycin 250mg tablet PO SCH (08:25)
[2019-01-14] MEDS: gabapentin 300mg capsule PO SCH (08:25)
[2019-01-14] MEDS: multivitamins, therapeutics tablet PO SCH (08:25)
[2019-01-14] MEDS: beta-carotene(A) w/C & E + minerals tab PO SCH (08:25)
[2019-01-14] MEDS: lactobacillus rhamnosus 10,000 MMU CELLS/CAPSULE PO SCH ×2 (08:25→21:27)
[2019-01-14] MEDS: clopidogrel 75mg tablet PO SCH (08:25)
[2019-01-14] MEDS: calcium carbonate 500mg tablet PO SCH (08:25)
[2019-01-14] MEDS: heparin, porcine 5000 units/ml vial SQ SCH ×2 (08:26→21:28)
[2019-01-14] MEDS: methylPREDNISolone sod succ 125mg/2ml vial IV SCH ×2 (08:26→21:28)
[2019-01-14] MEDS: CEFEPIME 2 GM in NS 100ml IV.SOLN 100 ML IV SCH ×2 (08:39→21:27)
[2019-01-14] MEDS: polyvinyl alcohol ophthalmic drops 15ml bottle EACHEYE SCH (08:39)
[2019-01-14 11:00] VITALS: BP 162/72
--- NOTE | 2019-01-14 17:58 | NUR ---
Problems reprioritized. Patient report given, questions answered & plan of care reviewed with JACQUELINE CANSECO.
--- NOTE | 2019-01-14 18:00 | NUR ---
received report from Megan CANSECO pt is awake, eating dinner, stating she has slight heartburn, call light and items of freq use within reach.
[2019-01-14 19:00] VITALS: BP 158/69
[2019-01-14] MEDS: tolterodine 2mg SR capsule (24hr) PO SCH (21:27)
[2019-01-14] MEDS: atenolol 50mg tablet PO SCH (21:28)
[2019-01-14] MEDS: traZODone 50mg tablet PO SCH (21:28)
[2019-01-14] MEDS: atorvastatin 20mg tablet PO SCH (21:28)
[2019-01-15] VITALS: BP 159/70
[2019-01-15] MEDS: ipratropium/albuterol 3ml nebule NEB SCH ×6 (03:29→23:15)
--- NOTE | 2019-01-15 06:30 | NUR ---
Patient in room [facility]. I have received report from Yaz ACNSECO and had the opportunity to ask questions and assume patient care.
--- NOTE | 2019-01-15 06:47 | NUR ---
gave report to Yohannes Giang pt is resting on 4L of O2 via NC in no apparent distress, call light and items of freq use within reach.
[2019-01-15 07:30] LABS: ALBUMIN 2.6 G/DL (3.4-5.0); ANION GAP 6 (8-16); BLOOD UREA NITROGEN 30 MG/DL (7-18); BUN/CREATININE RATIO 30.9 (6.6-38.0); CALCIUM 8.8 MG/DL (8.5-10.1); CHLORIDE 102 MMOL/L (99-107); CREATININE 0.97 MG/DL (0.40-0.90); GLUCOSE 110 MG/DL (70-104); SODIUM 142 MMOL/L (135-145); TOTAL CARBON DIOXIDE 34.5 MMOL/L (24-32); eGFR 54 ML/MIN
[2019-01-15 07:34] LABS: POTASSIUM 4.7 MMOL/L (3.5-5.1)
[2019-01-15 08:00] VITALS: BP 176/69
[2019-01-15] MEDS: azithromycin 250mg tablet PO SCH (08:02)
[2019-01-15] MEDS: multivitamins, therapeutics tablet PO SCH (08:02)
[2019-01-15] MEDS: lactobacillus rhamnosus 10,000 MMU CELLS/CAPSULE PO SCH ×2 (08:02→20:27)
[2019-01-15] MEDS: gabapentin 300mg capsule PO SCH (08:02)
[2019-01-15] MEDS: beta-carotene(A) w/C & E + minerals tab PO SCH (08:02)
[2019-01-15] MEDS: furosemide 20MG tablet PO SCH (08:03)
[2019-01-15] MEDS: calcium carbonate 500mg tablet PO SCH (08:03)
[2019-01-15] MEDS: potassium chloride 10mEq ER tablet PO SCH (08:03)
[2019-01-15] MEDS: methylPREDNISolone sod succ 125mg/2ml vial IV SCH ×2 (08:03→21:08)
[2019-01-15] MEDS: ascorbic acid 500mg tablet PO SCH (08:03)
[2019-01-15] MEDS: levoTHYROXINE 88mcg tablet PO SCH (08:03)
[2019-01-15] MEDS: CEFEPIME 2 GM in NS 100ml IV.SOLN 100 ML IV SCH ×2 (08:03→21:12)
[2019-01-15] MEDS: clopidogrel 75mg tablet PO SCH (08:03)
[2019-01-15] MEDS: heparin, porcine 5000 units/ml vial SQ SCH ×2 (08:04→21:29)
[2019-01-15] MEDS: polyvinyl alcohol ophthalmic drops 15ml bottle EACHEYE SCH (08:13)
[2019-01-15 09:07] LABS: BASOPHILS % (AUTO) 0.1 % (0-1); EOSINOPHILS % (AUTO) 0 % (0-6); HEMATOCRIT 39.7 % (35.0-45.0); LYMPHOCYTES % (AUTO) 6.7 % (21-51); MEAN CORPUSCULAR HEMOGLOBIN 31.3 PG (27.0-31.0); MEAN CORPUSCULAR HGB CONC 32.7 g/dL (33.0-36.5); MEAN CORPUSCULAR VOLUME 95.8 FL (78-98); MEAN PLATELET VOLUME 7.4 FL (7.4-10.4); MONOCYTES % (AUTO) 6.3 % (2-12); NEUTROPHILS # (AUTO) 13.2 X10'3 (1.8-7.7); NEUTROPHILS % (AUTO) 86.9 % (42-75); PLATELET COUNT 263 X10'3 (140-440); RED BLOOD COUNT 4.14 X10'6 (4.20-5.60); RED CELL DISTRIBUTION WIDTH 14.9 % (11.5-14.5); WHITE BLOOD COUNT 15.2 X10'3 (4.5-11.0)
[2019-01-15 12:09] VITALS: BP 150/73
[2019-01-15] MEDS: HYDROcodone/acetaminophen 5mg/325mg tablet PO PRN ×2 (13:34→19:38)
--- NOTE | 2019-01-15 15:35 | NUR ---
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 Advanced to regular/mechanical soft grind all per FURNITURE AND BEDDING INSPECTOR recs. Initial PO 75-100% meals now decreased to 25-50% past 2 days. LBM 01/12 w/ MoM PRN. Per MD note pt reports not feeling well today and coughing w/o sputum production. Likely effecting PO. Receiving sufficient vitamin/mineral supplementation. Will continue to monitor for PO hx and ONS needs given prior better PO. Rec: 1. continue mechanical soft/grind all diet per MD/FURNITURE AND BEDDING INSPECTOR 2. monitor for ONS needs if lower PO persists 3. weekly wts Addendum: 01/15/19 at [address] Amended: Links added.
[2019-01-15 18:00] VITALS: BP 116/98
--- NOTE | 2019-01-15 18:39 | NUR ---
Problems reprioritized. Patient report given, questions answered & plan of care reviewed with ODETTE CANSECO.
[2019-01-15] MEDS: atorvastatin 20mg tablet PO SCH (21:29)
[2019-01-15] MEDS: tolterodine 2mg SR capsule (24hr) PO SCH (21:29)
[2019-01-15] MEDS: traZODone 50mg tablet PO SCH (21:29)
[2019-01-15 21:30] VITALS: BP 154/59
[2019-01-15] MEDS: atenolol 50mg tablet PO SCH (21:30)
[2019-01-15 23:59] VITALS: BP 148/64
[2019-01-16] MEDS: ipratropium/albuterol 3ml nebule NEB SCH ×3 (03:00→12:13)
--- NOTE | 2019-01-16 06:42 | NUR ---
Patient in room [facility]. I have received report from Caprice CANSECO and had the opportunity to ask questions and assume patient care.
[2019-01-16 07:14] VITALS: BP 177/68
[2019-01-16 07:17] VITALS: BP 177/68
[2019-01-16] MEDS: levoTHYROXINE 88mcg tablet PO SCH (07:59)
[2019-01-16] MEDS: clopidogrel 75mg tablet PO SCH (07:59)
[2019-01-16] MEDS: lactobacillus rhamnosus 10,000 MMU CELLS/CAPSULE PO SCH (07:59)
[2019-01-16] MEDS: furosemide 20MG tablet PO SCH (07:59)
[2019-01-16] MEDS: azithromycin 250mg tablet PO SCH (07:59)
[2019-01-16] MEDS: calcium carbonate 500mg tablet PO SCH (07:59)
[2019-01-16] MEDS: gabapentin 300mg capsule PO SCH (07:59)
[2019-01-16] MEDS: multivitamins, therapeutics tablet PO SCH (07:59)
[2019-01-16] MEDS: potassium chloride 10mEq ER tablet PO SCH (07:59)
[2019-01-16] MEDS: ascorbic acid 500mg tablet PO SCH (08:00)
[2019-01-16] MEDS: beta-carotene(A) w/C & E + minerals tab PO SCH ×2 (08:00→08:40)
[2019-01-16] MEDS: polyvinyl alcohol ophthalmic drops 15ml bottle EACHEYE SCH (08:01)
[2019-01-16] MEDS: heparin, porcine 5000 units/ml vial SQ SCH (08:01)
[2019-01-16] MEDS: methylPREDNISolone sod succ 125mg/2ml vial IV SCH (08:45)
[2019-01-16] MEDS: CEFEPIME 2 GM in NS 100ml IV.SOLN 100 ML IV SCH (08:45)
[2019-01-16 10:03] VITALS: BP 153/64
--- NOTE | 2019-01-16 10:30 | NUR ---
Student documentation: I have reviewed and agree with all interventions, assessments performed and documented by Primitivo Deleon student RN.
[2019-01-16] MEDS: HYDROcodone/acetaminophen 5mg/325mg tablet PO PRN (11:37)
[2019-01-16 12:18] VITALS: BP 151/80
--- NOTE | 2019-01-16 13:45 | NUR ---
Patient discharge to [facility], Report called to accepting nurse Kanu, Patient report given at the time of transport. IV take out at this time as well, canula is whole and intact upon inspection. Patient left with all belonging at time of discharge.
== END 2019-01-16 13:55 | DRG 177 ==
LOC: ER 20:21 → ED HOLD 22:44 → SUR 3N 23:30
PROVIDERS: ADMIT Hospitalist; ATTEND Family Medicine
DX: J69.0 Pneumonitis due to inhalation of food and vomit (principal); I50.43 Acute on chronic combined systolic (congestive) and diastolic (congestive) heart failure; J44.1 Chronic obstructive pulmonary disease with (acute) exacerbation; J96.10 Chronic respiratory failure, unspecified whether with hypoxia or hypercapnia; I13.0 Hypertensive heart and chronic kidney disease with heart failure and stage 1 through stage 4 chronic kidney disease, or unspecified chronic kidney disease; N17.9 Acute kidney failure, unspecified; N18.9 Chronic kidney disease, unspecified; Z66 Do not resuscitate; Z85.3 Personal history of malignant neoplasm of breast; Z86.73 Personal history of transient ischemic attack (TIA), and cerebral infarction without residual deficits; Z87.891 Personal history of nicotine dependence; Z90.12 Acquired absence of left breast and nipple; Z90.710 Acquired absence of both cervix and uterus; Z95.2 Presence of prosthetic heart valve; Z88.0 Allergy status to penicillin; Z88.1 Allergy status to other antibiotic agents; Z90.49 Acquired absence of other specified parts of digestive tract
CPT/HCPCS: 36415; 71045; 80048; 80053; 83605; 83880; 84443; 84484; 85025; 85610; 85730; 87040; 87081; 92508; 92616; 93005; 94640; 94667; 94668; 94760; 96374; 97110; 97116; 97161; 97530; 97535; 99285; G0378; J0360; J0456; J0692; J1644; J2930

== ENCOUNTER → 2019-04-15 | Emergency (ER) | payer MEDICARE, OTHER ==
[~2019-04-15] VITALS: Ht 154.9 cm; Wt 66.0 kg
[~2019-04-15] MED LIST changes: +ASCO500C15 PO; +CALCIUM PO; +CARB10DR5 EACHEYE; -CARB30DR12 OP; -GUAI1TBM19 PO; -LEVO750T21 PO; -PRED20TA PO; +VIT1CAPS9 PO; -[UNRECOGNIZED DRUG - CODE] PO; +albuterol 2.5 MG/3 ML nebule NEB ONE; +ipratropium 0.5 MG/2.5ML nebule IH ONE; +methylPREDNISolone sod succ 125mg/2ml vial IV ONE
[2019-04-15 20:32] LABS: BASOPHILS % (AUTO) 0.3 % (0-1); EOSINOPHILS % (AUTO) 0.5 % (0-6); HEMATOCRIT 34.8 % (35.0-45.0); HEMOGLOBIN 11.4 g/dl (12.0-16.0); LYMPHOCYTES # (AUTO) 0.8 X10'3 (1.1-4.8); LYMPHOCYTES % (AUTO) 9.2 % (21-51); MEAN CORPUSCULAR HEMOGLOBIN 32.5 PG (27.0-31.0); MEAN CORPUSCULAR HGB CONC 32.8 g/dL (33.0-36.5); MEAN CORPUSCULAR VOLUME 98.8 FL (78-98); MEAN PLATELET VOLUME 7.6 FL (7.4-10.4); MONOCYTES # (AUTO) 0.6 X10'3 (0-0.9); MONOCYTES % (AUTO) 6.5 % (2-12); NEUTROPHILS # (AUTO) 7.2 X10'3 (1.8-7.7); NEUTROPHILS % (AUTO) 83.5 % (42-75); PLATELET COUNT 238 X10'3 (140-440); RED BLOOD COUNT 3.53 X10'6 (4.20-5.60); RED CELL DISTRIBUTION WIDTH 15.8 % (11.5-14.5); WHITE BLOOD COUNT 8.7 X10'3 (4.5-11.0)
[2019-04-15 20:45] LABS: ALANINE AMINOTRANSFERASE 32 U/L (12-78); ALBUMIN 3.1 G/DL (3.4-5.0); ALBUMIN/GLOBULIN RATIO 0.9 (1.1-1.5); ALKALINE PHOSPHATASE 48 IU/L (46-116); ANION GAP 3 (8-16); ASPARTATE AMINO TRANSFERASE 26 U/L (10-37); BILIRUBIN,TOTAL 0.2 MG/DL (0.1-1.0); BLOOD UREA NITROGEN 22 MG/DL (7-18); BUN/CREATININE RATIO 16.8 (6.6-38.0); CHLORIDE 105 MMOL/L (99-107); CREATININE 1.31 MG/DL (0.40-0.90); GLUCOSE 169 MG/DL (70-104); POTASSIUM 3.7 MMOL/L (3.5-5.1); SODIUM 147 MMOL/L (135-145); TOTAL CARBON DIOXIDE 38.8 MMOL/L (24-32); TOTAL PROTEIN 6.5 G/DL (6.4-8.2); eGFR 38 ML/MIN
[2019-04-15 20:46] LABS: PARTIAL THROMBOPLASTIN TIME 26 SECONDS (22-32)
[2019-04-15 21:45] VITALS: BP 175/87
== END | disposition home or self-care (01) ==
LOC: ER 19:37
DX: J44.1 Chronic obstructive pulmonary disease with (acute) exacerbation (principal); I11.0 Hypertensive heart disease with heart failure; I50.9 Heart failure, unspecified; Z86.73 Personal history of transient ischemic attack (TIA), and cerebral infarction without residual deficits; Z88.0 Allergy status to penicillin; Z88.1 Allergy status to other antibiotic agents; Z88.8 Allergy status to other drugs, medicaments and biological substances; Z79.899 Other long term (current) drug therapy
CPT/HCPCS: 36415; 71045; 80053; 84484; 85025; 85610; 85730; 93005; 94640; 96374; 99285; J2930; 94760